=== PATIENT | female | born 1935 | race Caucasian/White ===

== ENCOUNTER 2018-12-17 17:56 | Inpatient (IN) | payer MEDICARE, OTHER ==
[~2018-12-17] VITALS: Ht 170.2 cm; Wt 62.2 kg
[2018-12-17] MEDS ORDERED: ONDANSETRON 4 MG INJ IV STA (22:23)
[2018-12-17] MEDS ORDERED: SOD CHLORIDE 0.9% 500 ML IV STA (22:23)
[2018-12-17] MEDS ORDERED: morphine 4 MG/ML VIAL IV STA (22:23)
[2018-12-18] VITALS (13 sets, daily range): BP systolic 122–154; BP diastolic 57–83; PULSE 70–92; RESP 16; Ht 170.2 cm; Wt 62.2 kg
[2018-12-18] MEDS ORDERED: PIPER-TAZO 3.375 GM IV (PMX) 100 ML IVPB SCH (00:30)
[2018-12-18] MEDS ORDERED: VANCOMYCIN IV PER PHARMACY XX SCH (00:30)
[2018-12-18] MEDS ORDERED: ALBUTEROL/IPRATROPIUM (NEB) 3 ML AMP HHN PRN (00:30)
[2018-12-18] MEDS ORDERED: PIPER-TAZO 3.375 GM IV (PMX) 100 ML IVPB ONE (00:30)
[2018-12-18] MEDS ORDERED: NACL 0.9% 3 ML SYG IV SCH (00:30)
[2018-12-18] MEDS ORDERED: ONDANSETRON 4 MG INJ IV PRN (00:30)
[2018-12-18] MEDS ORDERED: VANCOMYCIN 1 GM (PMX) 250 ML IVPB ONE (00:30)
[2018-12-18] MEDS ORDERED: morphine 2 MG INJ IV PRN (00:30)
--- NOTE | 2018-12-18 02:20 | ERD ---
ER Documentation Chief Complaint Chief Complaint RLQ abd pain and diarrhea off and on x2 weeks worse today. HPI Is an 83-year-old female with a bilateral lower quadrant abdominal pain diarrhea off and on for the past 2 weeks. She said she had 5-7 episodes diarrhea per day. Pain is mild to moderate intensity no exacerbating alleviating factors. Denies any fevers or chills. Denies any other current issues. ROS All systems reviewed and are negative except as per history of present illness. Allergies Allergies: Coded Allergies: No Known Allergy (Unverified , 12/17/18) PMhx/Soc History of Surgery: Yes (bilat salphingoophrectomy) Hx Respiratory Disorders: Yes (pna) Hx Alcohol Use: Yes (doesn't currently drink) Hx Substance Use: No Hx Tobacco Use: Yes Smoking Status: Former smoker Physical Exam Vitals Vital Signs Date Temp Pulse Resp B/P (MAP) Pulse Ox O2 O2 Flow FiO2 Time Delivery Rate 12/18/18 87 21 126/59 99 Room Air 02:14 (81) 12/17/18 99.6 94 18 155/65 99 18:41 (95) Physical Exam Const: No acute distress Head: Atraumatic Eyes: Normal Conjunctiva ENT: Normal External Ears, Nose and Mouth. Neck: Full range of motion. No meningismus. Resp: Clear to auscultation bilaterally Cardio: Regular rate and rhythm, no murmurs Abd: Soft, non tender, non distended. Normal bowel sounds Skin: No petechiae or rashes Back: No midline or flank tenderness Ext: No cyanosis, or edema Neur: Awake and alert Psych: Normal Mood and Affect Result Diagram: 12/17/18 2315 12/17/18 2315 Results 24 hrs Laboratory Tests Test 12/17/18 23:15 12/17/18 23:22 White Blood Count 18.9 10^3/ul Red Blood Count 3.54 10^6/ul Hemoglobin 10.8 g/dl Hematocrit 33.6 % Mean Corpuscular Volume 94.9 fl Mean Corpuscular Hemoglobin 30.5 pg Mean Corpuscular Hemoglobin Concent 32.1 g/dl Red Cell Distribution Width 12.7 % Platelet Count 375 10^3/UL Mean Platelet Volume 8.6 fl Immature Granulocytes % 1.800 % Neutrophils % 81.2 % Lymphocytes % 10.5 % Monocytes % 5.8 % Eosinophils % 0.3 % Basophils % 0.4 % Nucleated Red Blood Cells % 0.0 /100WBC Immature Granulocytes # 0.350 10^3/ul Neutrophils # 15.4 10^3/ul Lymphocytes # 2.0 10^3/ul Monocytes # 1.1 10^3/ul Eosinophils # 0.1 10^3/ul Basophils # 0.1 10^3/ul Nucleated Red Blood Cells # 0.0 10^3/ul Urine Color YELLOW Urine Clarity SLIGHTLY CLOUDY Urine pH 5.0 Urine Specific [place] 1.008 Urine Ketones NEGATIVE mg/dL Urine Nitrite NEGATIVE mg/dL Urine Bilirubin NEGATIVE mg/dL Urine Urobilinogen NEGATIVE mg/dL Urine Leukocyte Esterase 3+ Leif/ul Urine Microscopic RBC 17 /HPF Urine Microscopic WBC 25 /HPF Urine Squamous Epithelial Cells FEW /HPF Urine Transitional Epithelial Cells FEW /HPF Urine Bacteria FEW /HPF Urine Mucus FEW /HPF Urine Hemoglobin 2+ mg/dL Urine Glucose NEGATIVE mg/dL Urine Total Protein NEGATIVE mg/dl Sodium Level 137 mmol/L Potassium Level 3.7 mmol/L Chloride Level 99 mmol/L Carbon Dioxide Level 23 mmol/L Anion Gap 15 Blood Urea Nitrogen 14 mg/dl Creatinine 0.89 mg/dl Est Glomerular Filtrat Rate mL/min mL/min Glucose Level 111 mg/dl Calcium Level 8.9 mg/dl Total Bilirubin 0.4 mg/dl Direct Bilirubin 0.00 mg/dl Indirect Bilirubin 0.4 mg/dl Aspartate Amino Transf (AST/SGOT) 21 IU/L Alanine Aminotransferase (ALT/SGPT) 18 IU/L Alkaline Phosphatase 94 IU/L Total Protein 7.4 g/dl Albumin 3.9 g/dl Globulin 3.50 g/dl Albumin/Globulin Ratio 1.11 Lipase 117 U/L POC Venous Lactate 1.5 mmol/L Current Medications Medications Dose Sig/Randa Start Time Status Last (Trade) Ordered Route PRN Stop Time Admin Dose Reason Admin Sodium 500 ml @ Q1H STAT 12/17/18 DC 12/17/18 Chloride 500 mls/hr IV 22:23 22:23 12/17/18 23:22 Morphine 4 mg ONCE STAT 12/17/18 DC 12/17/18 Sulfate IV 22:23 22:23 (morphine) 12/17/18 22:27 Ondansetron 4 mg ONCE STAT 12/17/18 DC 12/17/18 HCl (Zofran IV 22:23 22:23 Inj) 12/17/18 22:27 Piperacillin 100 ml @ ONCE ONCE 12/18/18 DC 12/18/18 Sod/ 200 mls/hr IVPB 00:30 00:51 Tazobactam 12/18/18 00:59 Sod Vancomycin 250 ml @ ONCE ONCE 12/18/18 12/18/18 HCl 125 mls/hr IVPB 00:30 02:12 12/18/18 02:29 1,000 ml @ Q10H IV 12/18/18 Dextrose/Sodi 100 mls/hr 00:30 um Chloride IV Flush 3 ml PER 12/18/18 (NS 3 ml) PROTOCOL IV 00:30 Ondansetron 4 mg Q6H PRN 12/18/18 HCl (Zofran IV 00:30 Inj) NAUSEA/VOMITI NG Morphine 2 mg Q4H PRN 12/18/18 Sulfate IV .SEVERE 00:30 (morphine) PAIN 7-10 Famotidine 20 mg Q12 IV 12/18/18 (Pepcid Iv) 09:00 Albuterol/ 3 ml Q2H RESP 12/18/18 Ipratropium THERAPY PRN 00:30 (Duoneb) HHN SHORTNESS OF BREATH Vancomycin VANCOMYCIN PER 12/18/18 HCl (Vanco PER PHARMACY PROTOCOL XX 00:30 Iv Per Pharmacy) Piperacillin 100 ml @ Q6H IVPB 12/18/18 DC Sod/ 200 mls/hr 00:30 Tazobactam 12/18/18 00:46 Sod Piperacillin 100 ml @ Q6 IVPB 12/18/18 Sod/ 200 mls/hr 06:00 Tazobactam Sod Procedures/MDM Emergency department course: Patient seen and brought by triage nurse. Placed in bed from the evaluation. Had intravenous access established. Given fluid bolus and pain medications. Had a stat CT scan. Start on antibiotics. Surgery Dr. Dooley consulted during her hospital stay. Recommended admission. Hospitalist made aware. Medical decision makin-year-old female with colitis with possible underlying neoplasm and possible microperforations. All results were relayed to Dr. Dooley. Patient will be seen by Dr. Dooley in the a.m. Hospitalist also made aware. All results discussed with patient and caregiver at the bedside. Departure Diagnosis: Primary Impression: Abdominal pain Abdominal location: unspecified location Qualified Codes: R10.9 - U nspecified abdominal pain Additional Impression: Colitis Condition: Serious DIAMOND VALLADARES Dec 18, 2018 02:20
[2018-12-18] MEDS: DEXTROSE 5%-0.45% NACL 1,000 ML IV SCH ×3 (05:17→20:55)
[2018-12-18] MEDS: PIPER-TAZO 3.375 GM IV (PMX) 100 ML IVPB SCH ×3 (05:21→17:22)
--- NOTE | 2018-12-18 05:46 | HP ---
DIAMOND IRIZARRY MD 12/18/18 0545: Date/Time of Note Date/Time of Note DATE: 12/18/18 TIME: 05:40 Assessment/Plan VTE Prophylaxis SCD applied (from Nsg): Yes Pharmacological prophylaxis: NA/contraindicated Pharm contraindication: other (Patient may have surgical procedure) Lines/Catheters IV Catheter Type (from Nrsg): Peripheral IV Assessment/Plan Assessment/Plan 1. Abdominal pain -CT showing abnormal irregular thickening of the cecum and ascending colon is concerning for underlying colonic neoplasm with superimposed colitis and contained micro perforation. -IV antibiotic -Stool studies including C. difficile -GI and surgical consult 2. Sepsis, as evidenced by leukocytosis and tachycardia: Likely secondary to colitis -See #1 3. 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" Result Diagram: 12/18/18 0343 12/18/18 0343 Results 24hrs Laboratory Tests Test 12/17/18 23:15 12/17/18 23:22 12/18/18 03:43 White Blood Count 18.9 H 15.6 H Red Blood Count 3.54 L 3.45 L Hemoglobin 10.8 L 10.7 L Hematocrit 33.6 L 32.9 L Mean Corpuscular Volume 94.9 95.4 Mean Corpuscular Hemoglobin 30.5 31.0 Mean Corpuscular 32.1 32.5 Hemoglobin Concent Red Cell Distribution Width 12.7 12.7 Platelet Count 375 373 Mean Platelet Volume 8.6 8.6 Immature Granulocytes % 1.800 H 2.200 H Neutrophils % 81.2 H 81.0 H Lymphocytes % 10.5 L 10.9 L Monocytes % 5.8 5.2 Eosinophils % 0.3 0.3 Basophils % 0.4 0.4 Nucleated Red Blood Cells % 0.0 0.0 Immature Granulocytes # 0.350 H 0.340 H Neutrophils # 15.4 H 12.6 H Lymphocytes # 2.0 1.7 Monocytes # 1.1 H 0.8 Eosinophils # 0.1 0.0 Basophils # 0.1 0.1 Nucleated Red Blood Cells # 0.0 0.0 Urine Color YELLOW Urine Clarity SLIGHTLY CLOUDY A Urine pH 5.0 Urine Specific [place] 1.008 Urine Ketones NEGATIVE Urine Nitrite NEGATIVE Urine Bilirubin NEGATIVE Urine Urobilinogen NEGATIVE Urine Leukocyte Esterase 3+ H Urine Microscopic RBC 17 H Urine Microscopic WBC 25 H Urine Squamous FEW Epithelial Cells Urine Transitional FEW A Epithelial Cells Urine Bacteria FEW A Urine Mucus FEW A Urine Hemoglobin 2+ H Urine Glucose NEGATIVE Urine Total Protein NEGATIVE Sodium Level 137 139 Potassium Level 3.7 4.0 Chloride Level 99 107 Carbon Dioxide Level 23 24 Anion Gap 15 H 8 Blood Urea Nitrogen 14 14 Creatinine 0.89 0.83 Est Glomerular Filtrat Rate mL/min Glucose Level 111 106 Calcium Level 8.9 8.4 Total Bilirubin 0.4 0.4 Direct Bilirubin 0.00 0.00 Indirect Bilirubin 0.4 0.4 Aspartate Amino 21 20 Transf (AST/SGOT) Alanine 18 20 Aminotransferase (ALT/SGPT) Alkaline Phosphatase 94 78 Total Protein 7.4 6.4 # Albumin 3.9 3.4 Globulin 3.50 H 3.00 Albumin/Globulin Ratio 1.11 1.13 Lipase 117 POC Venous Lactate 1.5 Lactic Acid Level 0.9 Phosphorus Level 3.2 Magnesium Level 2.1 HPI/ROS Admit Date/Time Admit Date/Time Dec 18, 2018 at 00:11 Hx of Present Illness This is an 83-year-old female with a history of TAHBSO, 50 years ago for "tumor" who presented to ER complaining of abdominal pain times 2 weeks. Pain is mainly localized in the right quadrant. When pain progressively worsens, she decided to come to the ER for evaluation. She reported having had an episode of watery diarrhea yesterday morning. She denied constipation or vomiting. Denied BRBPR or weight loss. When presented to ER, WBC of almost 19,000. CT abdomen pelvis shows the followin. Abnormal irregular thickening of the cecum and ascending colon is concerning for underlying colonic neoplasm with superimposed colitis and contained micro pe rforation, small punctate foci of extraluminal gas adjacent to the cecum without evidence for organized collection to suggest an abscess. Appendicitis and right colonic diverticulitis are differential diagnostic possibilities believed to be less likely. Follow-up evaluation is recommended. Findings are discussed by telephone with Dr. Bell at 23:43. 2. Moderate-sized sliding hiatal hernia. 3. Diverticular disease of the distal colon without diverticulitis in these locations. 4. Prior hysterectomy. 5. Bilateral renal cortex thinning and borderline renal atrophy. 6. Use atherosclerotic calcification of the aorta and iliac systems. 7. Generalized demineralization with lower lumbar degenerative disc disease. . PMH/Family/Social Past Medical History Medical History: other (See HPI) Medications Current Medications Dextrose/Sodium Chloride 1,000 ml @ 100 mls/hr Q10H IV Last administered on 12/18/18at 05:17; Admin Dose 100 MLS/HR; Start 12/18/18 at 00:30 IV Flush (NS 3 ml) 3 ml PER PROTOCOL IV ; Start 12/18/18 at 00:30 Ondansetron HCl (Zofran Inj) 4 mg Q6H PRN IV NAUSEA/VOMITING; Start 12/18/18 at 00:30 Morphine Sulfate (morphine) 2 mg Q4H PRN IV .SEVERE PAIN 7-10; Start 12/18/18 at 00:30 Famotidine (Pepcid Iv) 20 mg Q12 IV ; Start 12/18/18 at 09:00 Albuterol/ Ipratropium (Duoneb) 3 ml Q2H RESP THERAPY PRN HHN SHORTNESS OF BREATH; Start 12/18/18 at 00:30 Vancomycin HCl (Vanco Iv Per Pharmacy) VANCOMYCIN PER PHARMACY PER PROTOCOL XX ; Start 12/18/18 at 00:30 Piperacillin Sod/ Tazobactam Sod 100 ml @ 200 mls/hr Q6 IVPB Last administered on 12/18/18at 05:21; Admin Dose 200 MLS/HR; Start 12/18/18 at 06:00 Vancomycin HCl 250 ml @ 125 mls/hr Q24H IVPB ; Start 12/19/18 at 02:00 Coded Allergies: No Known Allergy (Unverified , 12/17/18) Past Surgical History Past Surgical Hx: other (TAHBSO) Family History Significant Family History: no pertinent family hx Social History Alcohol Use: none Smoking Status: Former smoker Drug Use: none Exam/Review of Systems Vital Signs Vitals Vital Signs Date Temp Pulse Resp B/P (MAP) Pulse Ox O2 O2 Flow FiO2 Time Delivery Rate 12/18/18 90 04:00 12/18/18 99.4 16 154/77 95 02:48 (102) 12/18/18 Room Air 02:14 Intake and Output 12/17/18 12/17/18 12/18/18 1515:00 23:00 07:00 IntakeIntake Total 600 ml BalanceBalance 600 ml Exam Constitutional: alert, oriented Head: normocephalic, atraumatic Eyes: EOMI, PERRL ENMT: other (Hard of hearing) Respiratory: clear to auscultation, normal air movement Cardiovascular: regular rate and rhythm, nl pulses Gastrointestinal: other (Right-sided abdominal pain) Extremities: normal pulses SAURABH SAMANO 12/18/18 1341: Assessment/Plan Assessment/Plan Hospital Course Subjective :still with significant abd pain, no more diarrhea, just had the one episode Objective : General: A&O x3, answering questions appropriately, elderly HEENT: NC/ AT. PERRL. EOM intact Neck: supple CVS: S1, S2, RRR. no murmurs. no pain on chest wall palpation Lungs: CTA b/l. no wheezing or rhonchi Abd: soft, tender ++ RLQ with jennifer distention on that side, + guarding Ext: moving all extremities skin: no rashes assessment and plan: 83-year-old female who resides in [facility] presented with severe right lower quadrant abdominal pain now managed for the followin. Acute colitis and contained microperforation with concern for underlying colonic neoplasm -CEA levels 2 sepsis secondary to #1 #3 3. Possible UTI 4. History of hysterectomy for 2 more Plan: Continue empiric antibiotics for now Await surgical and GI review and recommendations Continue n.p.o. and pain control and supportive care. Result Diagram: 12/18/18 0343 12/18/18 0343 PMH/Family/Social Past Medical History Coded Allergies: No Known Allergy (Unverified , 12/17/18) DIAMOND IRIZARRY MD Dec 18, 2018 05:45 SAURABH SAMANO Dec 18, 2018 13:41
[2018-12-18] MEDS: FAMOTIDINE 20 MG INJ IV SCH ×2 (08:34→20:55)
--- NOTE | 2018-12-18 19:20 | CONS ---
Assessment/Plan Assessment/Plan Hospital Course (Demo Recall) Summary Assessment and Plan: Assessment: Abnormal irregular thickening of the cecum and ascending colon -Concerning for underlying neoplasm -Superimposed colitis and contained microperforation Abdominal pain secondary to above Leukocytosistrending down UTI Plan: No plan for endoscopic evaluation given results of CT scan patient is considered very high risk for perforation Recommend conservative management continue n.p.o. status as well as IV fluids and antibiotics Follow-up on surgical recommendations Maintain close observation if patient improves consider colonoscopy in 2-4 weeks however if patient's condition worsens will defer to our surgical colleagues Patient seen in collaboration with Dr. Frederick CC: JOHN FREDERICK MD ; Consultation Date/Type/Reason Admit Date/Time Dec 18, 2018 at 00:11 Date of Consultation: Dec 18, 2018 Type of Consult GI Date/Time of Note DATE: 12/18/18 TIME: 19:04 Hx of Present Illness This is a 83-year-old female with past medical history of total abdominal hysterectomy and bilateral salpingo-oophorectomy about 50 years ago for a tumor who presented to the ED from her facility for complaints of progressive abdominal pain times 2 weeks to complain of diarrhea however denies constipation, nausea/vomiting, melena or hematochezia. Patient also denies unintentional weight loss. With workup she underwent a CT abdomen/pelvis without contrast which revealed abnormal irregular thickening of the cecum and a scending colon, concerning for underlying colonic neoplasm with superimposed colitis and contained microperforation. Small [place] foci of extraluminal gas adjacent to the cecum without evidence of organized collection to suggest abscess. Appendicitis and right colonic diverticulitis are differential diagnostic possibilities to believe less likely. Labs are noted with leukocytosis currently trending down patient is on Zosyn she does have normocytic anemia LFTs are within normal limits urine consistent with UTI given results of CAT scan plan to treat patient conservatively follow-up with surgical recommendations, and n.p.o. status for now continue IV fluids therapy and pain management as needed we will maintain close observation assess healing consider colonoscopy in 2-4 weeks however symptoms become progressively worse will defer to surgery for possible surgical intervention Review of Systems: A 12 system, review was conducted and is negative except as noted in the HPI or here. Past Medical History Medical History: other Home Meds Unable to Obtain Active Prescriptions or Reported Meds Medications Current Medications Dextrose/Sodium Chloride 1,000 ml @ 80 mls/hr [id number] IV Last administered on 12/18/18at 05:17; Admin Dose 100 MLS/HR; Start 12/18/18 at 00:30 IV Flush (NS 3 ml) 3 ml PER PROTOCOL IV ; Start 12/18/18 at 00:30 Ondansetron HCl (Zofran Inj) 4 mg Q6H PRN IV NAUSEA/VOMITING; Start 12/18/18 at 00:30 Morphine Sulfate (morphine) 2 mg Q4H PRN IV .SEVERE PAIN 7-10; Start 12/18/18 at 00:30 Famotidine (Pepcid Iv) 20 mg Q12 IV Last administered on 12/18/18at 08:34; Admin Dose 20 MG; Start 12/18/18 at 09:00 Albuterol/ Ipratropium (Duoneb) 3 ml Q2H RESP THERAPY PRN HHN SHORTNESS OF BREATH; Start 12/18/18 at 00:30 Piperacillin Sod/ Tazobactam Sod 100 ml @ 200 mls/hr Q6 IVPB Last administered on 12/18/18at 17:22; Admin Dose 200 MLS/HR; Start 12/18/18 at 06:00 Enoxaparin Sodium (Lovenox) 30 mg DAILY SC ; Start 12/19/18 at 09:00 Allergies: Coded Allergies: No Known Allergy (Unverified , 12/17/18) Past Surgical History Past Surgical Hx: other Social History Alcohol Use: none Smoking Status: Former smoker Drug Use: none Exam/Review of Systems Exam Vitals Vital Signs Date Temp Pulse Resp B/P (MAP) Pulse Ox O2 O2 Flow FiO2 Time Delivery Rate 12/18/18 83 16:01 12/18/18 98.7 16 136/65 96 15:35 (88) 12/18/18 Room Air 02:14 Intake and Output 12/17/18 12/17/18 12/18/18 1515:00 23:00 07:00 IntakeIntake Total 700 ml BalanceBalance 700 ml Constitutional: alert, oriented Psych: no complaints Head: normocephalic Eyes: nl conjunctiva ENMT: nl external ears & nose Neck: supple Respiratory: clear to auscultation Cardiovascular: regular rate and rhythm Gastrointestinal: soft, bowel sounds, tender (lower abd tenderness) Results Result Diagram: 12/18/18 0343 12/18/18 0343 Results 24hrs Laboratory Tests Test 12/17/18 23:15 12/17/18 23:22 12/18/18 03:43 White Blood Count 18.9 H 15.6 H Red Blood Count 3.54 L 3.45 L Hemoglobin 10.8 L 10.7 L Hematocrit 33.6 L 32.9 L Mean Corpuscular Volume 94.9 95.4 Mean Corpuscular Hemoglobin 30.5 31.0 Mean Corpuscular 32.1 32.5 Hemoglobin Concent Red Cell Distribution Width 12.7 12.7 Platelet Count 375 373 Mean Platelet Volume 8.6 8.6 Immature Granulocytes % 1.800 H 2.200 H Neutrophils % 81.2 H 81.0 H Lymphocytes % 10.5 L 10.9 L Monocytes % 5.8 5.2 Eosinophils % 0.3 0.3 Basophils % 0.4 0.4 Nucleated Red Blood Cells % 0.0 0.0 Immature Granulocytes # 0.350 H 0.340 H Neutrophils # 15.4 H 12.6 H Lymphocytes # 2.0 1.7 Monocytes # 1.1 H 0.8 Eosinophils # 0.1 0.0 Basophils # 0.1 0.1 Nucleated Red Blood Cells # 0.0 0.0 Urine Color YELLOW Urine Clarity SLIGHTLY CLOUDY A Urine pH 5.0 Urine Specific [place] 1.008 Urine Ketones NEGATIVE Urine Nitrite NEGATIVE Urine Bilirubin NEGATIVE Urine Urobilinogen NEGATIVE Urine Leukocyte Esterase 3+ H Urine Microscopic RBC 17 H Urine Microscopic WBC 25 H Urine Squamous FEW Epithelial Cells Urine Transitional FEW A Epithelial Cells Urine Bacteria FEW A Urine Mucus FEW A Urine Hemoglobin 2+ H Urine Glucose NEGATIVE Urine Total Protein NEGATIVE Sodium Level 137 139 Potassium Level 3.7 4.0 Chloride Level 99 107 Carbon Dioxide Level 23 24 Anion Gap 15 H 8 Blood Urea Nitrogen 14 14 Creatinine 0.89 0.83 Est Glomerular Filtrat Rate mL/min Glucose Level 111 106 Calcium Level 8.9 8.4 Total Bilirubin 0.4 0.4 Direct Bilirubin 0.00 0.00 Indirect Bilirubin 0.4 0.4 Aspartate Amino 21 20 Transf (AST/SGOT) Alanine 18 20 Aminotransferase (ALT/SGPT) Alkaline Phosphatase 94 78 Total Protein 7.4 6.4 # Albumin 3.9 3.4 Globulin 3.50 H 3.00 Albumin/Globulin Ratio 1.11 1.13 Lipase 117 POC Venous Lactate 1.5 Lactic Acid Level 0.9 Phosphorus Level 3.2 Magnesium Level 2.1 Medications Medication Current Medications Dextrose/Sodium Chloride 1,000 ml @ 80 mls/hr [id number] IV Last administered on 12/18/18at 05:17; Admin Dose 100 MLS/HR; Start 12/18/18 at 00:30 IV Flush (NS 3 ml) 3 ml PER PROTOCOL IV ; Start 12/18/18 at 00:30 Ondansetron HCl (Zofran Inj) 4 mg Q6H PRN IV NAUSEA/VOMITING; Start 12/18/18 at 00:30 Morphine Sulfate (morphine) 2 mg Q4H PRN IV .SEVERE PAIN 7-10; Start 12/18/18 at 00:30 Famotidine (Pepcid Iv) 20 mg Q12 IV Last administered on 12/18/18at 08:34; Admin Dose 20 MG; Start 12/18/18 at 09:00 Albuterol/ Ipratropium (Duoneb) 3 ml Q2H RESP THERAPY PRN HHN SHORTNESS OF BREATH; Start 12/18/18 at 00:30 Piperacillin Sod/ Tazobactam Sod 100 ml @ 200 mls/hr Q6 IVPB Last administered on 12/18/18at 17:22; Admin Dose 200 MLS/HR; Start 12/18/18 at 06:00 Enoxaparin Sodium (Lovenox) 30 mg DAILY SC ; Start 12/19/18 at 09:00 WILBUR WAHL Dec 18, 2018 19:14
[2018-12-19] VITALS (10 sets, daily range): BP systolic 105–153; BP diastolic 51–77; PULSE 64–80; RESP 16–18
[2018-12-19] MEDS: PIPER-TAZO 3.375 GM IV (PMX) 100 ML IVPB SCH ×4 (00:35→18:07)
[2018-12-19] MEDS ORDERED: VANCOMYCIN 1 GM 250 ML IVPB SCH (02:00)
[2018-12-19] MEDS: FAMOTIDINE 20 MG INJ IV SCH ×2 (08:10→20:55)
[2018-12-19] MEDS: ENOXAPARIN 30 MG/0.3 ML SYG SC SCH (08:17)
[2018-12-19] MEDS: DEXTROSE 5%-0.45% NACL 1,000 ML IV SCH (10:58)
--- NOTE | 2018-12-19 11:19 | PN ---
Date/Time of Note Date/Time of Note DATE: 12/19/18 TIME: 11:16 Assessment/Plan VTE Prophylaxis Risk score (from Nsg)>0 risk: 5 SCD applied (from Nsg): Yes Pharmacological prophylaxis: LMWH Lines/Catheters IV Catheter Type (from Nrsg): Peripheral IV Assessment/Plan Hospital Course Subjective : abd pain is better ? Objective : General: A&O x3, answering questions appropriately, elderly HEENT: NC/ AT. PERRL. EOM intact Neck: supple CVS: S1, S2, RRR. no murmurs. no pain on chest wall palpation Lungs: CTA b/l. 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 Acute colitis and contained microperforation with concern for underlying colonic neoplasm -CEA levels 2 sepsis secondary to #1 #3 3. Possible UTI 4. History of hysterectomy for "tumor" Plan: -Appreciate GI input -Spoke in detail with surgery, plan is to continue antibiotics, n.p.o. for now and plan to repeat the CAT scan in another 24-48 hours. Surgery is not entirely convinced about underlying neoplasm, repeat imaging after the inflammation has improved will give more information. -In the interim, continue all supportive care, IV hydration, n.p.o. except ice chips. Result Diagram: 12/19/18 0607 12/19/18 0555 Results 24hrs Laboratory Tests Test 12/19/18 05:55 12/19/18 06:07 Sodium Level 138 Potassium Level 3.6 Chloride Level 108 Carbon Dioxide Level 22 Anion Gap 8 Blood Urea Nitrogen 10 Creatinine 0.86 Est Glomerular Filtrat Rate mL/min Glucose Level 105 Calcium Level 8.2 L Phosphorus Level 2.7 Magnesium Level 2.1 Carcinoembryonic Antigen 1.4 White Blood Count 15.5 H Red Blood Count 3.33 L Hemoglobin 10.1 L Hematocrit 31.3 L Mean Corpuscular Volume 94.0 Mean Corpuscular Hemoglobin 30.3 Mean Corpuscular Hemoglobin Concent 32.3 Red Cell Distribution Width 12.7 Platelet Count 376 Mean Platelet Volume 8.9 Immature Granulocytes % 1.200 H Neutrophils % 82.5 H Lymphocytes % 9.7 L Monocytes % 5.7 Eosinophils % 0.5 Basophils % 0.4 Nucleated Red Blood Cells % 0.0 Immature Granulocytes # 0.180 H Neutrophils # 12.8 H Lymphocytes # 1.5 Monocytes # 0.9 Eosinophils # 0.1 Basophils # 0.1 Nucleated Red Blood Cells # 0.0 Exam/Review of Systems Exam Vitals Vital Signs Date Temp Pulse Resp B/P (MAP) Pulse Ox O2 O2 Flow FiO2 Time Delivery Rate 12/19/18 68 08:14 12/19/18 98.5 16 132/63 100 07:28 (86) 12/18/18 Room Air 02:14 Intake and Output 12/18/18 12/18/18 12/19/18 1515:00 23:00 07:00 IntakeIntake Total 100 ml 900 ml 200 ml OutputOutput Total 800 ml BalanceBalance 100 ml 100 ml 200 ml Results Results 24hrs Laboratory Tests Test 12/19/18 05:55 12/19/18 06:07 Sodium Level 138 Potassium Level 3.6 Chloride Level 108 Carbon Dioxide Level 22 Anion Gap 8 Blood Urea Nitrogen 10 Creatinine 0.86 Est Glomerular Filtrat Rate mL/min Glucose Level 105 Calcium Level 8.2 L Phosphorus Level 2.7 Magnesium Level 2.1 Carcinoembryonic Antigen 1.4 White Blood Count 15.5 H Red Blood Count 3.33 L Hemoglobin 10.1 L Hematocrit 31.3 L Mean Corpuscular Volume 94.0 Mean Corpuscular Hemoglobin 30.3 Mean Corpuscular Hemoglobin Concent 32.3 Red Cell Distribution Width 12.7 Platelet Count 376 Mean Platelet Volume 8.9 Immature Granulocytes % 1.200 H Neutrophils % 82.5 H Lymphocytes % 9.7 L Monocytes % 5.7 Eosinophils % 0.5 Basophils % 0.4 Nucleated Red Blood Cells % 0.0 Immature Granulocytes # 0.180 H Neutrophils # 12.8 H Lymphocytes # 1.5 Monocytes # 0.9 Eosinophils # 0.1 Basophils # 0.1 Nucleated Red Blood Cells # 0.0 Medications Medication Current Medications Dextrose/Sodium Chloride 1,000 ml @ 80 mls/hr [id number] IV Last administered on 12/19/18at 10:58; Admin Dose 80 MLS/HR; Start 12/18/18 at 00:30 IV Flush (NS 3 ml) 3 ml PER PROTOCOL IV ; Start 12/18/18 at 00:30 Ondansetron HCl (Zofran Inj) 4 mg Q6H PRN IV NAUSEA/VOMITING; Start 12/18/18 at 00:30 Morphine Sulfate (morphine) 2 mg Q4H PRN IV .SEVERE PAIN 7-10; Start 12/18/18 at 00:30 Famotidine (Pepcid Iv) 20 mg Q12 IV Last administered on 12/19/18at 08:10; Admin Dose 20 MG; Start 12/18/18 at 09:00 Albuterol/ Ipratropium (Duoneb) 3 ml Q2H RESP THERAPY PRN HHN SHORTNESS OF BREATH; Start 12/18/18 at 00:30 Piperacillin Sod/ Tazobactam Sod 100 ml @ 200 mls/hr Q6 IVPB Last administered on 12/19/18at 05:53; Admin Dose 200 MLS/HR; Start 12/18/18 at 06:00 Enoxaparin Sodium (Lovenox) 30 mg DAILY SC Last administered on 12/19/18at 08:17; Admin Dose 30 MG; Start 12/19/18 at 09:00 SAURABH SAMANO Dec 19, 2018 11:19
--- NOTE | 2018-12-19 12:08 | CONS ---
Assessment/Plan Assessment/Plan Assessment/Plan (Daily) 83-year-old female presents with right-sided abdominal pain possible colitis possible microperforation of diverticulitis versus microperforation with neoplasm. Possibility of appendicitis but feel that this is most likely secondary to adjacent inflammation. Recommendation is to monitor patient keep on IV antibiotics and possible repeat the CAT scan with oral contrast if this does seem suggestive of a neoplasm patient will will need to undergo exploration for possible right colectomy. Patient is not at the state currently to undergo endoscopy because of the question microperforation Consultation Date/Type/Reason Admit Date/Time Dec 18, 2018 at 00:11 Date of Consultation: Dec 19, 2018 Type of Consult General surgery Reason for Consultation Right-sided colitis versus neoplasm possible microperforation possible appendicitis Requesting Provider: SAURABH SAMANO Date/Time of Note DATE: 12/19/18 TIME: 12:05 Hx of Present Illness Patient 83-year-old female who presented with worsening abdominal pain over the past couple of weeks. Patient past medical history though the patient has not seen physician in many years. Patient has never had colonoscopy has never had a mammogram and does not have annual health care visits. On evaluation in the emergency room CAT scan was obtained which showed possible colitis diverticulitis with possible superimposed appendicitis and question of microperforation with possible neoplasm in the cecum. Patient felt too high risk for endoscopy. Patient states that she is feeling better now and is having multiple bowel movements. Past Medical History Medical History: other Home Meds Unable to Obtain Active Prescriptions or Reported Meds Medications Current Medications Dextrose/Sodium Chloride 1,000 ml @ 80 mls/hr [id number] IV Last administered on 12/19/18at 10:58; Admin Dose 80 MLS/HR; Start 12/18/18 at 00:30 IV Flush (NS 3 ml) 3 ml PER PROTOCOL IV ; Start 12/18/18 at 00:30 Ondansetron HCl (Zofran Inj) 4 mg Q6H PRN IV NAUSEA/VOMITING; Start 12/18/18 at 00:30 Morphine Sulfate (morphine) 2 mg Q4H PRN IV .SEVERE PAIN 7-10; Start 12/18/18 at 00:30 Famotidine (Pepcid Iv) 20 mg Q12 IV Last administered on 12/19/18at 08:10; Admin Dose 20 MG; Start 12/18/18 at 09:00 Albuterol/ Ipratropium (Duoneb) 3 ml Q2H RESP THERAPY PRN HHN SHORTNESS OF BREATH; Start 12/18/18 at 00:30 Piperacillin Sod/ Tazobactam Sod 100 ml @ 200 mls/hr Q6 IVPB Last administered on 12/19/18at 11:47; Admin Dose 200 MLS/HR; Start 12/18/18 at 06:00 Enoxaparin Sodium (Lovenox) 30 mg DAILY SC Last administered on 12/19/18at 08:17; Admin Dose 30 MG; Start 12/19/18 at 09:00 Allergies: Coded Allergies: No Known Allergy (Unverified , 12/17/18) Past Surgical History Past Surgical Hx: other Social History Alcohol Use: none Smoking Status: Former smoker Drug Use: none Exam/Review of Systems Exam Vitals Vital Signs Date Temp Pulse Resp B/P (MAP) Pulse Ox O2 O2 Flow FiO2 Time Delivery Rate 12/19/18 98.1 68 16 130/64 95 11:36 (86) 12/18/18 Room Air 02:14 Intake and Output 12/18/18 12/18/18 12/19/18 1414:59 22:59 06:59 IntakeIntake Total 100 ml 900 ml 200 ml OutputOutput Total 800 ml BalanceBalance 100 ml 100 ml 200 ml Exam Alert and oriented x3. Patient expresses that she thinks she is to hold undergo general anesthesia. HEENT pupils equal react light sclerae anicteric. Lungs clear to auscultation. Heart regular rate and rhythm with normal S1-S2. Abdomen soft nondistended mild tenderness right side abdomen to palpation no justina ound Results Result Diagram: 12/19/18 0607 12/19/18 0555 Results 24hrs Laboratory Tests Test 12/19/18 05:55 12/19/18 06:07 Sodium Level 138 Potassium Level 3.6 Chloride Level 108 Carbon Dioxide Level 22 Anion Gap 8 Blood Urea Nitrogen 10 Creatinine 0.86 Est Glomerular Filtrat Rate mL/min Glucose Level 105 Calcium Level 8.2 L Phosphorus Level 2.7 Magnesium Level 2.1 Carcinoembryonic Antigen 1.4 White Blood Count 15.5 H Red Blood Count 3.33 L Hemoglobin 10.1 L Hematocrit 31.3 L Mean Corpuscular Volume 94.0 Mean Corpuscular Hemoglobin 30.3 Mean Corpuscular Hemoglobin Concent 32.3 Red Cell Distribution Width 12.7 Platelet Count 376 Mean Platelet Volume 8.9 Immature Granulocytes % 1.200 H Neutrophils % 82.5 H Lymphocytes % 9.7 L Monocytes % 5.7 Eosinophils % 0.5 Basophils % 0.4 Nucleated Red Blood Cells % 0.0 Immature Granulocytes # 0.180 H Neutrophils # 12.8 H Lymphocytes # 1.5 Monocytes # 0.9 Eosinophils # 0.1 Basophils # 0.1 Nucleated Red Blood Cells # 0.0 Medications Medication Current Medications Dextrose/Sodium Chloride 1,000 ml @ 80 mls/hr [id number] IV Last administered on 12/19/18at 10:58; Admin Dose 80 MLS/HR; Start 12/18/18 at 00:30 IV Flush (NS 3 ml) 3 ml PER PROTOCOL IV ; Start 12/18/18 at 00:30 Ondansetron HCl (Zofran Inj) 4 mg Q6H PRN IV NAUSEA/VOMITING; Start 12/18/18 at 00:30 Morphine Sulfate (morphine) 2 mg Q4H PRN IV .SEVERE PAIN 7-10; Start 12/18/18 at 00:30 Famotidine (Pepcid Iv) 20 mg Q12 IV Last administered on 12/19/18at 08:10; Admin Dose 20 MG; Start 12/18/18 at 09:00 Albuterol/ Ipratropium (Duoneb) 3 ml Q2H RESP THERAPY PRN HHN SHORTNESS OF BREATH; Start 12/18/18 at 00:30 Piperacillin Sod/ Tazobactam Sod 100 ml @ 200 mls/hr Q6 IVPB Last administered on 12/19/18at 11:47; Admin Dose 200 MLS/HR; Start 12/18/18 at 06:00 Enoxaparin Sodium (Lovenox) 30 mg DAILY SC Last administered on 12/19/18at 08:17; Admin Dose 30 MG; Start 12/19/18 at 09:00 DIAMOND LAFLEUR MD Dec 19, 2018 12:08
--- NOTE | 2018-12-19 15:22 | PN ---
Date/Time of Note Date/Time of Note DATE: 12/19/18 TIME: 15:15 Assessment/Plan VTE Prophylaxis Risk score (from Ns)>0 risk: 5 SCD applied (from Ns): Yes Pharmacological prophylaxis: other (scds) Lines/Catheters IV Catheter Type (from [facility]): Peripheral IV Assessment/Plan Hospital Course Summary Assessment and Plan: Assessment: Abnormal irregular thickening of the cecum and ascending colon -Concerning for underlying neoplasm -Superimposed colitis and contained microperforation Abdominal pain secondary to above Leukocytosistrending down UTI Plan: Per surgery/Hospitalist notes- plan to repeat CT with oral contrast in 24-48 hours. Again no current plan for endoscopic evaluation. Continue n.p.o. status as well as IV fluids/antibiotics Maintain close observation if patient improves consider colonoscopy in 2-4 weeks however if patient's condition worsens will defer to our surgical colleagues Patient seen in collaboration with Dr. Frederick Subjective: Course reviewed with nursing staff Patient interviewed and examined All labs, imaging and other results reviewed The patient currently resting in bed No over night events, no c/o pain or discomfort. However with palpation pt c/o pain to LLQ Maintain close observation PHYSICAL EXAMINATION: GENERAL: Alert & oriented x 3, in no acute distress SKIN: No lesions HEAD: Normocephalic, atraumatic, no tenderness. EYES: Pupils equal reactive to light, no discharge. EARS/NOSE AND THROAT: Ears normal, nose normal NECK: Supple, no masses CHEST: Inspection within normal limits. CARDIOVASCULAR: Heart: Regular rate and rhythm RESPIRATORY: Lungs clear to auscultation GASTROINTESTINAL AND LIVER: Abdomen: Soft, LLQ tenderness with palpation, non-distended, no hernias, no masses, no organomegaly, no ascites, no guarding, no rebound tenderness, normoactive bowel sounds. Rectal: Deferred. EXTREMITIES: No cyanosis, clubbing or edema. Result Diagram: 12/19/18 0607 12/19/18 0555 Results 24hrs Laboratory Tests Test 12/19/18 05:55 12/19/18 06:07 Sodium Level 138 Potassium Level 3.6 Chloride Level 108 Carbon Dioxide Level 22 Anion Gap 8 Blood Urea Nitrogen 10 Creatinine 0.86 Est Glomerular Filtrat Rate mL/min Glucose Level 105 Calcium Level 8.2 L Phosphorus Level 2.7 Magnesium Level 2.1 Carcinoembryonic Antigen 1.4 White Blood Count 15.5 H Red Blood Count 3.33 L Hemoglobin 10.1 L Hematocrit 31.3 L Mean Corpuscular Volume 94.0 Mean Corpuscular Hemoglobin 30.3 Mean Corpuscular Hemoglobin Concent 32.3 Red Cell Distribution Width 12.7 Platelet Count 376 Mean Platelet Volume 8.9 Immature Granulocytes % 1.200 H Neutrophils % 82.5 H Lymphocytes % 9.7 L Monocytes % 5.7 Eosinophils % 0.5 Basophils % 0.4 Nucleated Red Blood Cells % 0.0 Immature Granulocytes # 0.180 H Neutrophils # 12.8 H Lymphocytes # 1.5 Monocytes # 0.9 Eosinophils # 0.1 Basophils # 0.1 Nucleated Red Blood Cells # 0.0 Exam/Review of Systems Exam Vitals Vital Signs Date Temp Pulse Resp B/P (MAP) Pulse Ox O2 O2 Flow FiO2 Time Delivery Rate 12/19/18 69 12:03 12/19/18 98.1 16 130/64 95 11:36 (86) 12/18/18 Room Air 02:14 Intake and Output 12/18/18 12/18/18 12/19/18 1515:00 23:00 07:00 IntakeIntake Total 100 ml 900 ml 200 ml OutputOutput Total 800 ml BalanceBalance 100 ml 100 ml 200 ml Results Results 24hrs Laboratory Tests Test 12/19/18 05:55 12/19/18 06:07 Sodium Level 138 Potassium Level 3.6 Chloride Level 108 Carbon Dioxide Level 22 Anion Gap 8 Blood Urea Nitrogen 10 Creatinine 0.86 Est Glomerular Filtrat Rate mL/min Glucose Level 105 Calcium Level 8.2 L Phosphorus Level 2.7 Magnesium Level 2.1 Carcinoembryonic Antigen 1.4 White Blood Count 15.5 H Red Blood Count 3.33 L Hemoglobin 10.1 L Hematocrit 31.3 L Mean Corpuscular Volume 94.0 Mean Corpuscular Hemoglobin 30.3 Mean Corpuscular Hemoglobin Concent 32.3 Red Cell Distribution Width 12.7 Platelet Count 376 Mean Platelet Volume 8.9 Immature Granulocytes % 1.200 H Neutrophils % 82.5 H Lymphocytes % 9.7 L Monocytes % 5.7 Eosinophils % 0.5 Basophils % 0.4 Nucleated Red Blood Cells % 0.0 Immature Granulocytes # 0.180 H Neutrophils # 12.8 H Lymphocytes # 1.5 Monocytes # 0.9 Eosinophils # 0.1 Basophils # 0.1 Nucleated Red Blood Cells # 0.0 Medications Medication Current Medications Dextrose/Sodium Chloride 1,000 ml @ 80 mls/hr [id number] IV Last administered on 12/19/18at 10:58; Admin Dose 80 MLS/HR; Start 12/18/18 at 00:30 IV Flush (NS 3 ml) 3 ml PER PROTOCOL IV ; Start 12/18/18 at 00:30 Ondansetron HCl (Zofran Inj) 4 mg Q6H PRN IV NAUSEA/VOMITING; Start 12/18/18 at 00:30 Morphine Sulfate (morphine) 2 mg Q4H PRN IV .SEVERE PAIN 7-10; Start 12/18/18 at 00:30 Famotidine (Pepcid Iv) 20 mg Q12 IV Last administered on 12/19/18at 08:10; Admin Dose 20 MG; Start 12/18/18 at 09:00 Albuterol/ Ipratropium (Duoneb) 3 ml Q2H RESP THERAPY PRN HHN SHORTNESS OF BREATH; Start 12/18/18 at 00:30 Piperacillin Sod/ Tazobactam Sod 100 ml @ 200 mls/hr Q6 IVPB Last administered on 12/19/18at 11:47; Admin Dose 200 MLS/HR; Start 12/18/18 at 06:00 Enoxaparin Sodium (Lovenox) 30 mg DAILY SC Last administered on 12/19/18at 08:17; Admin Dose 30 MG; Start 12/19/18 at 09:00 WILBUR WAHL Dec 19, 2018 15:22
--- NOTE | 2018-12-19 18:19 | PN ---
Date/Time of Note Date/Time of Note DATE: 12/19/18 TIME: 18:15 Assessment/Plan VTE Prophylaxis Risk score (from [facility])>0 risk: 5 SCD applied (from [facility]): Yes Pharmacological prophylaxis: NA/contraindicated Pharm contraindication: surgical contra Lines/Catheters IV Catheter Type (from [facility]): Peripheral IV Assessment/Plan Assessment/Plan PROGRESS NOTE Date/Time of Note Date/Time of Note DATE: 12/19/18 TIME: 15:15 Assessment/Plan VTE Prophylaxis Risk score (from [facility] [place])>0 risk: 5 SCD applied (from [facility] [facility]): Yes Pharmacological prophylaxis: other (scds) Lines/Catheters IV Catheter Type (from [facility]): Peripheral IV Assessment/Plan Hospital Course Summary Assessment and Plan: Assessment: Abnormal irregular thickening of the cecum and ascending colon -Concerning for underlying neoplasm -Superimposed colitis and contained microperforation Abdominal pain secondary to above Leukocytosistrending down UTI Plan: Discussed with Dr. Dooley surgeon in the case, plan to repeat CT with oral contrast in 24-48 hours. No current plan for endoscopic evaluation. Continue n.p.o. status as well as IV fluids/antibiotics Maintain close observation if patient improves consider colonoscopy in 2-4 weeks however if patient's condition worsens will defer to our surgical colleagues Result Diagram: 12/19/18 0607 12/19/18 0555 Results 24hrs Laboratory Tests Test 12/19/18 05:55 12/19/18 06:07 Sodium Level 138 Potassium Level 3.6 Chloride Level 108 Carbon Dioxide Level 22 Anion Gap 8 Blood Urea Nitrogen 10 Creatinine 0.86 Est Glomerular Filtrat Rate mL/min Glucose Level 105 Calcium Level 8.2 L Phosphorus Level 2.7 Magnesium Level 2.1 Carcinoembryonic Antigen 1.4 White Blood Count 15.5 H Red Blood Count 3.33 L Hemoglobin 10.1 L Hematocrit 31.3 L Mean Corpuscular Volume 94.0 Mean Corpuscular Hemoglobin 30.3 Mean Corpuscular Hemoglobin Concent 32.3 Red Cell Distribution Width 12.7 Platelet Count 376 Mean Platelet Volume 8.9 Immature Granulocytes % 1.200 H Neutrophils % 82.5 H Lymphocytes % 9.7 L Monocytes % 5.7 Eosinophils % 0.5 Basophils % 0.4 Nucleated Red Blood Cells % 0.0 Immature Granulocytes # 0.180 H Neutrophils # 12.8 H Lymphocytes # 1.5 Monocytes # 0.9 Eosinophils # 0.1 Basophils # 0.1 Nucleated Red Blood Cells # 0.0 Subjective 24 Hr Interval Summary Free Text/Dictation Subjective: Course reviewed with nursing staff Patient interviewed and examined All labs, imaging and other results reviewed The patient appears comfortable No over night events, no c/o pain or discomfort. Reviewed with Dr. Dooley from surgery, will plan repeat CT in 24 hours Maintain close observation Exam/Review of Systems Exam Vitals Vital Signs Date Temp Pulse Resp B/P (MAP) Pulse Ox O2 O2 Flow FiO2 Time Delivery Rate 12/19/18 98.7 68 18 153/67 98 Room Air 16:38 (95) Intake and Output 12/18/18 12/18/18 12/19/18 1515:00 23:00 07:00 IntakeIntake Total 100 ml 900 ml 200 ml OutputOutput Total 800 ml BalanceBalance 100 ml 100 ml 200 ml Exam PHYSICAL EXAMINATION: GENERAL: Alert & oriented x 3, in no acute distress SKIN: No lesions HEAD: Normocephalic, atraumatic, no tenderness. EYES: Pupils equal reactive to light, no discharge. EARS/NOSE AND THROAT: Ears normal, nose normal NECK: Supple, no masses CHEST: Inspection within normal limits. CARDIOVASCULAR: Heart: Regular rate and rhythm RESPIRATORY: Lungs clear to auscultation GASTROINTESTINAL AND LIVER: Abdomen: Soft, LLQ tenderness with palpation, non- distended, no hernias, no masses, no organomegaly, no ascites, no guarding, no rebound tenderness, normoactive bowel sounds. Rectal: Deferred. EXTREMITIES: No cyanosis, clubbing or edema. Results Results 24hrs Laboratory Tests Test 12/19/18 05:55 12/19/18 06:07 Sodium Level 138 Potassium Level 3.6 Chloride Level 108 Carbon Dioxide Level 22 Anion Gap 8 Blood Urea Nitrogen 10 Creatinine 0.86 Est Glomerular Filtrat Rate mL/min Glucose Level 105 Calcium Level 8.2 L Phosphorus Level 2.7 Magnesium Level 2.1 Carcinoembryonic Antigen 1.4 White Blood Count 15.5 H Red Blood Count 3.33 L Hemoglobin 10.1 L Hematocrit 31.3 L Mean Corpuscular Volume 94.0 Mean Corpuscular Hemoglobin 30.3 Mean Corpuscular Hemoglobin Concent 32.3 Red Cell Distribution Width 12.7 Platelet Count 376 Mean Platelet Volume 8.9 Immature Granulocytes % 1.200 H Neutrophils % 82.5 H Lymphocytes % 9.7 L Monocytes % 5.7 Eosinophils % 0.5 Basophils % 0.4 Nucleated Red Blood Cells % 0.0 Immature Granulocytes # 0.180 H Neutrophils # 12.8 H Lymphocytes # 1.5 Monocytes # 0.9 Eosinophils # 0.1 Basophils # 0.1 Nucleated Red Blood Cells # 0.0 Medications Medication Current Medications Dextrose/Sodium Chloride 1,000 ml @ 80 mls/hr [id number] IV Last administered on 12/19/18at 10:58; Admin Dose 80 MLS/HR; Start 12/18/18 at 00:30 IV Flush (NS 3 ml) 3 ml PER PROTOCOL IV ; Start 12/18/18 at 00:30 Ondansetron HCl (Zofran Inj) 4 mg Q6H PRN IV NAUSEA/VOMITING; Start 12/18/18 at 00:30 Morphine Sulfate (morphine) 2 mg Q4H PRN IV .SEVERE PAIN 7-10; Start 12/18/18 at 00:30 Famotidine (Pepcid Iv) 20 mg Q12 IV Last administered on 12/19/18at 08:10; Admin Dose 20 MG; Start 12/18/18 at 09:00 Albuterol/ Ipratropium (Duoneb) 3 ml Q2H RESP THERAPY PRN HHN SHORTNESS OF BREATH; Start 12/18/18 at 00:30 Piperacillin Sod/ Tazobactam Sod 100 ml @ 200 mls/hr Q6 IVPB Last administered on 12/19/18at 18:07; Admin Dose 200 MLS/HR; Start 12/18/18 at 06:00 Enoxaparin Sodium (Lovenox) 30 mg DAILY SC Last administered on 12/19/18at 0 8:17; Admin Dose 30 MG; Start 12/19/18 at 09:00 JOHN PHILLIPS MD Dec 19, 2018 18:19
[2018-12-20] MEDS: PIPER-TAZO 3.375 GM IV (PMX) 100 ML IVPB SCH ×5 (00:06→23:59)
[2018-12-20] MEDS: DEXTROSE 5%-0.45% NACL 1,000 ML IV SCH ×3 (00:06→17:44)
[2018-12-20 02:07] VITALS: BP 143/65; PULSE 61; RESP 16
[2018-12-20 07:37] VITALS: BP 139/66; PULSE 61; RESP 18
[2018-12-20] MEDS: FAMOTIDINE 20 MG INJ IV SCH ×2 (08:46→21:10)
[2018-12-20] MEDS: ENOXAPARIN 30 MG/0.3 ML SYG SC SCH (08:47)
--- NOTE | 2018-12-20 13:43 | PN ---
Date/Time of Note Date/Time of Note DATE: 12/20/18 TIME: 13:37 Assessment/Plan VTE Prophylaxis Risk score (from Ns)>0 risk: 4 SCD applied (from Ns): Yes Pharmacological prophylaxis: other (scds) Lines/Catheters IV Catheter Type (from [facility]): Peripheral IV Assessment/Plan Hospital Course Summary Assessment and Plan: Assessment: Abnormal irregular thickening of the cecum and ascending colon -Concerning for underlying neoplasm -Superimposed colitis and contained microperforation Abdominal pain secondary to above Leukocytosistrending down UTI Plan: Plan to repeat CT with oral contrast today No current plan for endoscopic evaluation. Continue n.p.o. status as well as IV fluids/antibiotics Maintain close observation if patient improves consider colonoscopy in 2-4 weeks however if patient's condition worsens will defer to our surgical colleagues Monitor labs Patient seen in collaboration with Dr. Frederick/Susan Subjective: Course reviewed with nursing staff Patient interviewed and examined All labs, imaging and other results reviewed The patient currently resting in bed, pt feels better after taking a shower today Pain with palpation to LLQ, no c/o nausea or vomiting Maintain close observation PHYSICAL EXAMINATION: GENERAL: Alert & oriented x 3, in no acute distress SKIN: No lesions HEAD: Normocephalic, atraumatic, no tenderness. EYES: Pupils equal reactive to light, no discharge. EARS/NOSE AND THROAT: Ears normal, nose normal NECK: Supple, no masses CHEST: Inspection within normal limits. CARDIOVASCULAR: Heart: Regular rate and rhythm RESPIRATORY: Lungs clear to auscultation GASTROINTESTINAL AND LIVER: Abdomen: Soft, LLQ tenderness with palpation, non- distended, no hernias, no masses, no organomegaly, no ascites, no guarding, no rebound tenderness, normoactive bowel sounds. Rectal: Deferred. EXTREMITIES: No cyanosis, clubbing or edema. Result Diagram: 12/19/18 0607 12/19/18 0555 Results 24hrs Laboratory Tests Test 12/20/18 07:04 Carcinoembryonic Antigen 1.3 Exam/Review of Systems Exam Vitals Vital Signs Date Temp Pulse Resp B/P (MAP) Pulse Ox O2 O2 Flow FiO2 Time Delivery Rate 12/20/18 97.8 61 18 139/66 96 Room Air 07:37 (90) Intake and Output 12/19/18 12/19/18 12/20/18 1414:59 22:59 06:59 IntakeIntake Total 100 ml 1600 ml BalanceBalance 100 ml 1600 ml Results Results 24hrs Laboratory Tests Test 12/20/18 07:04 Carcinoembryonic Antigen 1.3 Medications Medication Current Medications Dextrose/Sodium Chloride 1,000 ml @ 80 mls/hr [id number] IV Last administered on 12/20/18at 00:06; Admin Dose 80 MLS/HR; Start 12/18/18 at 00:30 IV Flush (NS 3 ml) 3 ml PER PROTOCOL IV ; Start 12/18/18 at 00:30 Ondansetron HCl (Zofran Inj) 4 mg Q6H PRN IV NAUSEA/VOMITING; Start 12/18/18 at 00:30 Morphine Sulfate (morphine) 2 mg Q4H PRN IV .SEVERE PAIN 7-10; Start 12/18/18 at 00:30 Famotidine (Pepcid Iv) 20 mg Q12 IV Last administered on 12/20/18at 08:46; Admin Dose 20 MG; Start 12/18/18 at 09:00 Albuterol/ Ipratropium (Duoneb) 3 ml Q2H RESP THERAPY PRN HHN SHORTNESS OF BREATH; Start 12/18/18 at 00:30 Piperacillin Sod/ Tazobactam Sod 100 ml @ 200 mls/hr Q6 IVPB Last administered on 12/20/18at 11:51; Admin Dose 200 MLS/HR; Start 12/18/18 at 06:00 Enoxaparin Sodium (Lovenox) 30 mg DAILY SC Last administered on 12/20/18at 08:47; Admin Dose 30 MG; Start 12/19/18 at 09:00 Barium Sulfate (Readi-Cat 2 ( [employer] )) 900 ml GIVE PRIOR TO CT ONCE PO ; Start 12/20/18 at 14:00; Stop 12/20/18 at 14:01 WILBUR WAHL Dec 20, 2018 13:43
[2018-12-20 14:00] VITALS: BP 165/73; PULSE 62; RESP 18
[2018-12-20] MEDS ORDERED: BARIUM SULF 2% 450 ML BTL (BERRY SMOOTHIE) PO ONE (14:00)
--- NOTE | 2018-12-20 18:41 | PN ---
Date/Time of Note Date/Time of Note DATE: 12/20/18 TIME: 18:40 Assessment/Plan VTE Prophylaxis Risk score (from Nsg)>0 risk: 4 SCD applied (from Nsg): Yes Pharmacological prophylaxis: LMWH Lines/Catheters IV Catheter Type (from Nrsg): Peripheral IV Assessment/Plan Hospital Course Subjective : abd pain is better Objective : General: A&O x3, answering questions appropriately, elderly HEENT: NC/ AT. PERRL. EOM intact Neck: supple CVS: S1, S2, RRR. no murmurs. no pain on chest wall palpation Lungs: CTA b/l. no wheezing or rhonchi Abd: soft, burner tender RLQ with some distention on that side, less guarding Ext: moving all extremities skin: no rashes assessment and plan: 83-year-old female who resides in [facility] presented with severe right lower quadrant abdominal pain now managed for the followin. Acute colitis and contained microperforation with concern for underlying colonic neoplasm -CEA levels 2 sepsis secondary to #1 #3 3. Possible UTI 4. History of hysterectomy for "tumor" Plan: -Appreciate GI input -Spoke in detail with surgery, plan is to continue antibiotics, n.p.o. for now and plan to repeat the CAT scan today . Surgery is not entirely convinced about underlying neoplasm, repeat imaging after the inflammation has improved will give more information. -In the interim, continue all supportive care, IV hydration, n.p.o. except ice chips. Result Diagram: 12/19/18 0607 12/19/18 0555 Results 24hrs Laboratory Tests Test 12/20/18 07:04 Carcinoembryonic Antigen 1.3 Exam/Review of Systems Exam Vitals Vital Signs Date Temp Pulse Resp B/P (MAP) Pulse Ox O2 O2 Flow FiO2 Time Delivery Rate 12/20/18 98.2 62 18 165/73 97 Room Air 14:00 (103) Intake and Output 12/19/18 12/19/18 12/20/18 1515:00 23:00 07:00 IntakeIntake Total 100 ml 1600 ml BalanceBalance 100 ml 1600 ml Results Results 24hrs Laboratory Tests Test 12/20/18 07:04 Carcinoembryonic Antigen 1.3 Medications Medication Current Medications Dextrose/Sodium Chloride 1,000 ml @ 80 mls/hr [id number] IV Last administered on 12/20/18 17:44; Admin Dose 80 MLS/HR; Start 12/18/18 at 00:30 IV Flush (NS 3 ml) 3 ml PER PROTOCOL IV ; Start 12/18/18 at 00:30 Ondansetron HCl (Zofran Inj) 4 mg Q6H PRN IV NAUSEA/VOMITING; Start 12/18/18 at 00:30 Morphine Sulfate (morphine) 2 mg Q4H PRN IV .SEVERE PAIN 7-10; Start 12/18/18 at 00:30 Famotidine (Pepcid Iv) 20 mg Q12 IV Last administered on 12/20/18 08:46; Admin Dose 20 MG; Start 12/18/18 at 09:00 Albuterol/ Ipratropium (Duoneb) 3 ml Q2H RESP THERAPY PRN HHN SHORTNESS OF BREATH; Start 12/18/18 at 00:30 Piperacillin Sod/ Tazobactam Sod 100 ml @ 200 mls/hr Q6 IVPB Last administered on 12/20/18at 17:41; Admin Dose 200 MLS/HR; Start 12/18/18 at 06:00 Enoxaparin Sodium (Lovenox) 30 mg DAILY SC Last administered on 12/20/18 08:47; Admin Dose 30 MG; Start 12/19/18 at 09:00 SAURABH SMAANO Dec 20, 2018 18:41
[2018-12-20 20:00] VITALS: BP 148/65; PULSE 72; RESP 16
[2018-12-21] MEDS: DEXTROSE 5%-0.45% NACL 1,000 ML IV SCH ×3 (00:13→12:43)
[2018-12-21 02:21] VITALS: BP 140/69; PULSE 66; RESP 18
[2018-12-21] MEDS: PIPER-TAZO 3.375 GM IV (PMX) 100 ML IVPB SCH ×3 (05:41→18:32)
--- NOTE | 2018-12-21 06:36 | PN ---
Date/Time of Note Date/Time of Note DATE: 12/21/18 TIME: 06:31 Assessment/Plan VTE Prophylaxis Risk score (from Nsg)>0 risk: 4 SCD applied (from Nsg): Yes Pharmacological prophylaxis: LMWH Lines/Catheters IV Catheter Type (from Nrsg): Peripheral IV Assessment/Plan Hospital Course Subjective : abd pain is better, but she's still quite tender Objective : General: A&O x3, answering questions appropriately, elderly HEENT: NC/ AT. PERRL. EOM intact Neck: supple CVS: S1, S2, RRR. no murmurs. no pain on chest wall palpation Lungs: CTA b/l. no wheezing or rhonchi Abd: soft, swage tender RLQ with some distention on that side, less guarding Ext: moving all extremities skin: no rashes assessment and plan: 83-year-old female who resides in [facility] presented with severe right lower quadrant abdominal pain now managed for the followin. Acute colitis involving cecum, mid ascending colon, terminal ileum 2/2 acute colitis / ileatis vs diverticulitis and less likely neoplastic process also with adjacent primary or secondary appendicitis -there was evidence of microperforation earlier, which are not seen on repeat CT -CEA levels wnl 2 sepsis secondary to #1 #3 3. Possible UTI 4. History of hysterectomy for "tumor" Plan: - There's slow improvement on imaging, will plan to continue current regimen of IV abx and NPO for now -speak with surgery re: nutrition options -appreciate all consults Result Diagram: 12/19/18 0607 12/19/18 0555 Results 24hrs Laboratory Tests Test 12/20/18 07:04 Carcinoembryonic Antigen 1.3 Exam/Review of Systems Exam Vitals Vital Signs Date Temp Pulse Resp B/P (MAP) Pulse Ox O2 O2 Flow FiO2 Time Delivery Rate 12/21/18 98.5 66 18 140/69 99 02:21 (92) 12/20/18 Room Air 14:00 Intake and Output 12/20/18 12/20/18 12/21/18 1515:00 23:00 07:00 IntakeIntake Total 420 ml 380 ml 1000 ml BalanceBalance 420 ml 380 ml 1000 ml Results Results 24hrs Laboratory Tests Test 12/20/18 07:04 Carcinoembryonic Antigen 1.3 Imaging Imaging PROCEDURE: CT abdomen and pelvis with contrast CLINICAL INDICATION: Abdominal pain TECHNIQUE: Continues 2.5 mm axial images were obtained from the domes of the diaphragms to the inferior pubic rami following intravenous injection of 100 cc of Isovue 300. The calculated dose length product (DLP) = 509.38 mGy-cm. Exam CTDlvol = 9.03 mGy. One or more of the following dose reduction techniques were used: Automated exposure control, adjustment of the mA and or KV according to patient size, or use of iterative reconstruction technique. DICOM images are available. COMPARISON: 12/17/2018 FINDINGS: Images through the lung bases demonstrate new small bilateral pleural effusions. There is trace pericardial effusion. Minimal basilar atelectasis is noted. Gallbladder is moderately distended. There is questionable trace pericholecystic fluid. Correlation with ultrasound is recommended. Liver, pancreas, spleen, adrenals, and kidneys are within normal limits. There is no obstructive uropathy. Aorta is normal in caliber and moderately calcified. There are no pathologically enlarged periaortic lymph nodes. Small hiatal hernia is seen. There is thickening of the antrum/pyloric channel may suggest peptic ulcer disease/gastritis. No small bowel dilatation or obstruction is seen. There is no free fluid, free air, abscess in the upper abdomen CT pelvis: As before, there is abnormal thickening of the cecum since the mid ascending colon as well as abnormal thickening of the terminal ileum with adjacent mesenteric stranding and trace free fluid. Scattered diverticuli within the terminal ileum. The appearance is nonspecific but may suggest a inflammatory or infectious colitis, diverticulitis, or neoplastic process. There is a probable appendix is visualized in the retrocecal region which is indistinct with adjacent inflammatory stranding. This may represent a primary appendicitis versus secondary change from the inflammatory process involving the cecum and terminal ileum.. The transverse and the ascending colon demonstrate no significant inflammatory change. There is extensive sigmoid diverticulosis. Bladder is normally distended grossly unremarkable. Uterus is surgically absent. Adnexa are within normal limits. There are no pathologically enlarged iliac chain lymph nodes. No destructive bony lesions are seen. IMPRESSION: 1. Persistent abnormal thickening and inflammation of the cecum extending into the mid ascending colon and terminal ileum with adjacent inflammatory stranding and trace free fluid. The degree of inflammation is not significantly changed from prior examination. There is scattered diverticuli within the terminal ileum . The appearance may suggest an infectious/inflammatory ileal colitis, diverticulitis, or neoplastic process. 2. The appendix is identified in the retrocecal region and appears dilated measuring 1.1 cm with periappendiceal stranding and inflammation; this could represent primary appendicitis versus secondary change. Clinical correlation is advised. 3. Sigmoid diverticulosis without acute diverticulitis 4. No intraperitoneal abscess or free air. The previously questioned small pockets of extraluminal air are no longer visualized. 5. Moderately distended gallbladder with questionable trace pericholecystic fluid. Correlation with ultrasound is recommended. 6. New small bilateral pleural effusions. 7. Trace pericardial effusion. 8. Small hiatal hernia. Benign mild thickening of the gastric antrum and pyloric region suggesting peptic ulcer disease RPTAT: HH .Cruz Riggs MD, MD Date Time Electronically viewed and signed by .Cruz Riggs MD, MD on 12/20/2018 17:42 .W/ CC: SAURABH SAMANO [id number] Medications Medication Current Medications Dextrose/Sodium Chloride 1,000 ml @ 80 mls/hr [id number] IV Last administered on 12/20/18at 17:44; Admin Dose 80 MLS/HR; Start 12/18/18 at 00:30 IV Flush (NS 3 ml) 3 ml PER PROTOCOL IV ; Start 12/18/18 at 00:30 Ondansetron HCl (Zofran Inj) 4 mg Q6H PRN IV NAUSEA/VOMITING; Start 12/18/18 at 00:30 Morphine Sulfate (morphine) 2 mg Q4H PRN IV .SEVERE PAIN 7-10; Start 12/18/18 at 00:30 Famotidine (Pepcid Iv) 20 mg Q12 IV Last administered on 12/20/18at 21:10; Admin Dose 20 MG; Start 12/18/18 at 09:00 Albuterol/ Ipratropium (Duoneb) 3 ml Q2H RESP THERAPY PRN HHN SHORTNESS OF BREATH; Start 12/18/18 at 00:30 Piperacillin Sod/ Tazobactam Sod 100 ml @ 200 mls/hr Q6 IVPB Last administered on 12/21/18at 05:41; Admin Dose 200 MLS/HR; Start 12/18/18 at 06:00 Enoxaparin Sodium (Lovenox) 30 mg DAILY SC Last administered on 12/20/18at 08:47; Admin Dose 30 MG; Start 12/19/18 at 09:00 SAURABH SAMANO Dec 21, 2018 06:36
[2018-12-21 08:06] VITALS: BP 138/61; PULSE 68; RESP 18
[2018-12-21] MEDS: FAMOTIDINE 20 MG INJ IV SCH ×2 (09:47→21:11)
[2018-12-21] MEDS: ENOXAPARIN 30 MG/0.3 ML SYG SC SCH (09:50)
[2018-12-21 14:30] VITALS: BP 145/75; PULSE 69; RESP 18
--- NOTE | 2018-12-21 15:55 | PN ---
Date/Time of Note Date/Time of Note DATE: 12/21/18 TIME: 15:20 Assessment/Plan VTE Prophylaxis Risk score (from Ns)>0 risk: 3 SCD applied (from Ns): Yes Pharmacological prophylaxis: heparin Lines/Catheters [facility]from [facility] Peripheral IV Assessment/Plan Assessment/Plan Assessment: Abnormal irregular thickening of the cecum and ascending colon and TI -Poss. infectious/inflammatory ileal colitis, diverticulitis, or neoplastic process. -periappendiceal stranding and inflammation could represent primary appendicitis versus secondary change. Small hiatal hernia Mild thickening of the gastric antrum and pyloric region suggesting peptic ulcer disease Diverticulosis Moderately distended gallbladder with trace pericholecystic fluid Pleural effusions. Trace pericardial effusion. Abdominal pain - resolved Leukocytosistrending down UTI Plan: Stool for H-pylori Start Protonix 40 mg daily No current plan for endoscopic evaluation. Continue n.p.o. status as well as IV fluids/antibiotics Maintain close observation if patient improves consider EGD/colonoscopy in 2-4 weeks however if patient's condition worsens will defer to our surgical colleagues Monitor labs Patient seen in collaboration with Dr. Frederick/Susan Subjective: Course reviewed with nursing staff Patient interviewed and examined All labs, imaging and other results reviewed The patient currently resting in bed, she spoke to the surgeon about her fear of being put under anesthesia. No plan for surgery at this time Abd pain resolved, no c/o nausea or vomiting. Will start on clear liquid diet. Check stool for H. pylori. Start Protonix daily. Follow-up as an outpatient for EGD/colonoscopy Maintain close observation PHYSICAL EXAMINATION: GENERAL: Alert & oriented x 3, in no acute distress SKIN: No lesions HEAD: Normocephalic, atraumatic, no tenderness. EYES: Pupils equal reactive to light, no discharge. EARS/NOSE AND THROAT: Ears normal, nose normal NECK: Supple, no masses CHEST: Inspection within normal limits. CARDIOVASCULAR: Heart: Regular rate and rhythm RESPIRATORY: Lungs clear to auscultation GASTROINTESTINAL AND LIVER: Abdomen: Soft, no tenderness with palpation, non- distended, no hernias, no masses, no organomegaly, no ascites, no guarding, no rebound tenderness, normoactive bowel sounds. Rectal: Deferred. EXTREMITIES: No cyanosis, clubbing or edema. Result Diagram: 12/19/18 0607 12/19/18 0555 CC: JOHN FREDERICK MD ; Exam/Review of Systems Exam Vitals Vital Signs Date Temp Pulse Resp B/P (MAP) Pulse Ox O2 O2 Flow FiO2 Time Delivery Rate 12/21/18 98.0 68 18 138/61 99 Room Air 08:06 (86) Intake and Output 12/20/18 12/20/18 12/21/18 1515:00 23:00 07:00 IntakeIntake Total 420 ml 380 ml 1000 ml BalanceBalance 420 ml 380 ml 1000 ml Medications Medication Current Medications Dextrose/Sodium Chloride 1,000 ml @ 80 mls/hr [id number] IV Last administered on 12/21/18 09:47; Admin Dose 80 MLS/HR; Start 12/18/18 at 00:30 IV Flush (NS 3 ml) 3 ml PER PROTOCOL IV ; Start 12/18/18 at 00:30 Ondansetron HCl (Zofran Inj) 4 mg Q6H PRN IV NAUSEA/VOMITING; Start 12/18/18 at 00:30 Morphine Sulfate (morphine) 2 mg Q4H PRN IV .SEVERE PAIN 7-10; Start 12/18/18 at 00:30 Famotidine (Pepcid Iv) 20 mg Q12 IV Last administered on 12/21/18 09:47; Admin Dose 20 MG; Start 12/18/18 at 09:00 Albuterol/ Ipratropium (Duoneb) 3 ml Q2H RESP THERAPY PRN HHN SHORTNESS OF BREATH; Start 12/18/18 at 00:30 Piperacillin Sod/ Tazobactam Sod 100 ml @ 200 mls/hr Q6 IVPB Last administered on 12/21/18at 12:20; Admin Dose 200 MLS/HR; Start 12/18/18 at 06:00 Enoxaparin Sodium (Lovenox) 30 mg DAILY SC Last administered on 12/21/18at 09:50; Admin Dose 30 MG; Start 12/19/18 at 09:00 KADEN GRIMES NP Dec 21, 2018 15:34
[2018-12-21 20:00] VITALS: BP 138/66; PULSE 63; RESP 18
[2018-12-22] MEDS: PIPER-TAZO 3.375 GM IV (PMX) 100 ML IVPB SCH ×4 (00:01→17:41)
[2018-12-22] MEDS: DEXTROSE 5%-0.45% NACL 1,000 ML IV SCH ×2 (01:22→15:20)
[2018-12-22 02:00] VITALS: BP 149/68; PULSE 66; RESP 18
[2018-12-22] MEDS: PANTOPRAZOLE 40 MG INJ IV SCH (06:06)
[2018-12-22 08:16] VITALS: BP 151/73; PULSE 63; RESP 17
[2018-12-22] MEDS: FAMOTIDINE 20 MG INJ IV SCH ×2 (09:02→21:12)
[2018-12-22] MEDS: ENOXAPARIN 30 MG/0.3 ML SYG SC SCH (09:06)
--- NOTE | 2018-12-22 11:06 | PN ---
Date/Time of Note Date/Time of Note DATE: 12/22/18 TIME: 10:52 Assessment/Plan VTE Prophylaxis Risk score (from Ns)>0 risk: 4 SCD applied (from Ns): Yes Pharmacological prophylaxis: other (scds) Lines/Catheters IV Catheter Type (from [facility]): Saline Lock Assessment/Plan Hospital Course Assessment/Plan Assessment: Abnormal irregular thickening of the cecum and ascending colon and TI -Poss. infectious/inflammatory ileal colitis, diverticulitis, or neoplastic process. -periappendiceal stranding and inflammation could represent primary appendicitis versus secondary change. Small hiatal hernia Mild thickening of the gastric antrum and pyloric region suggesting peptic ulcer disease Diverticulosis Moderately distended gallbladder with trace pericholecystic fluid Pleural effusions. Trace pericardial effusion. Abdominal pain - resolved Leukocytosistrending down UTI Plan: Increase diet to full liquid no dairy Monitor labs Maintain close observation Patient seen in collaboration with Dr. Frederick/Susan Subjective: Course reviewed with nursing staff Patient interviewed and examined All labs, imaging and other results reviewed Pt is doing well no c/o abd pain n/v with cl liquid diet, will plan to advance to full liquid no dairy Pt does note some diarrhea,pt has had x2 BMs today if increased will order stool studies, WBC wnl. PHYSICAL EXAMINATION: GENERAL: Alert & oriented x 3, in no acute distress SKIN: No lesions HEAD: Normocephalic, atraumatic, no tenderness. EYES: Pupils equal reactive to light, no discharge. EARS/NOSE AND THROAT: Ears normal, nose normal NECK: Supple, no masses CHEST: Inspection within normal limits. CARDIOVASCULAR: Heart: Regular rate and rhythm RESPIRATORY: Lungs clear to auscultation GASTROINTESTINAL AND LIVER: Abdomen: Soft, no tenderness with palpation- impr jean carlos, non-distended, no hernias, no masses, no organomegaly, no ascites, no guarding, no rebound tenderness, normoactive bowel sounds. Rectal: Deferred. EXTREMITIES: No cyanosis, clubbing or edema. Result Diagram: 12/22/18 0613 12/22/18 0613 Results 24hrs Laboratory Tests Test 12/22/18 06:13 White Blood Count 6.2 # Red Blood Count 3.38 L Hemoglobin 10.1 L Hematocrit 31.2 L Mean Corpuscular Volume 92.3 Mean Corpuscular Hemoglobin 29.9 Mean Corpuscular Hemoglobin Concent 32.4 Red Cell Distribution Width 12.5 Platelet Count 394 Mean Platelet Volume 8.4 Immature Granulocytes % 2.000 H Neutrophils % 65.9 Lymphocytes % 20.8 Monocytes % 7.2 Eosinophils % 3.4 Basophils % 0.7 Nucleated Red Blood Cells % 0.0 Immature Granulocytes # 0.120 H Neutrophils # 4.1 Lymphocytes # 1.3 Monocytes # 0.4 Eosinophils # 0.2 Basophils # 0.0 Nucleated Red Blood Cells # 0.0 Sodium Level 143 Potassium Level 3.0 L Chloride Level 110 Carbon Dioxide Level 25 Anion Gap 8 Blood Urea Nitrogen 3 L Creatinine 0.81 Est Glomerular Filtrat Rate mL/min Glucose Level 108 Calcium Level 8.3 L Magnesium Level 1.8 Exam/Review of Systems Exam Vitals Vital Signs Date Temp Pulse Resp B/P (MAP) Pulse Ox O2 O2 Flow FiO2 Time Delivery Rate 12/22/18 97.2 63 17 151/73 98 08:16 (99) 12/21/18 Room Air 14:30 Intake and Output 12/21/18 12/21/18 12/22/18 1515:00 23:00 07:00 IntakeIntake Total 580 ml 1600 ml BalanceBalance 580 ml 1600 ml Results Results 24hrs Laboratory Tests Test 12/22/18 06:13 White Blood Count 6.2 # Red Blood Count 3.38 L Hemoglobin 10.1 L Hematocrit 31.2 L Mean Corpuscular Volume 92.3 Mean Corpuscular Hemoglobin 29.9 Mean Corpuscular Hemoglobin Concent 32.4 Red Cell Distribution Width 12.5 Platelet Count 394 Mean Platelet Volume 8.4 Immature Granulocytes % 2.000 H Neutrophils % 65.9 Lymphocytes % 20.8 Monocytes % 7.2 Eosinophils % 3.4 Basophils % 0.7 Nucleated Red Blood Cells % 0.0 Immature Granulocytes # 0.120 H Neutrophils # 4.1 Lymphocytes # 1.3 Monocytes # 0.4 Eosinophils # 0.2 Basophils # 0.0 Nucleated Red Blood Cells # 0.0 Sodium Level 143 Potassium Level 3.0 L Chloride Level 110 Carbon Dioxide Level 25 Anion Gap 8 Blood Urea Nitrogen 3 L Creatinine 0.81 Est Glomerular Filtrat Rate mL/min Glucose Level 108 Calcium Level 8.3 L Magnesium Level 1.8 Medications Medication Current Medications Dextrose/Sodium Chloride 1,000 ml @ 80 mls/hr [id number] IV Last administered on 12/22/18at 01:22; Admin Dose 80 MLS/HR; Start 12/18/18 at 00:30 IV Flush (NS 3 ml) 3 ml PER PROTOCOL IV ; Start 12/18/18 at 00:30 Ondansetron HCl (Zofran Inj) 4 mg Q6H PRN IV NAUSEA/VOMITING; Start 12/18/18 at 00:30 Morphine Sulfate (morphine) 2 mg Q4H PRN IV .SEVERE PAIN 7-10; Start 12/18/18 at 00:30 Famotidine (Pepcid Iv) 20 mg Q12 IV Last administered on 12/22/18 09:02; Admin Dose 20 MG; Start 12/18/18 at 09:00 Albuterol/ Ipratropium (Duoneb) 3 ml Q2H RESP THERAPY PRN HHN SHORTNESS OF BREATH; Start 12/18/18 at 00:30 Piperacillin Sod/ Tazobactam Sod 100 ml @ 200 mls/hr Q6 IVPB Last administered on 12/22/18 06:06; Admin Dose 200 MLS/HR; Start 12/18/18 at 06:00 Enoxaparin Sodium (Lovenox) 30 mg DAILY SC Last administered on 12/22/18 09:06; Admin Dose 30 MG; Start 12/19/18 at 09:00 Pantoprazole (Protonix Iv) 40 mg DAILY@06 IV Last administered on 12/22/18 06:06; Admin Dose 40 MG; Start 12/22/18 at 06:00 WILBUR WAHL Dec 22, 2018 11:03
--- NOTE | 2018-12-22 11:23 | PN ---
Date/Time of Note Date/Time of Note DATE: 12/22/18 TIME: 11:22 Objective Vitals Vital Signs Date Temp Pulse Resp B/P (MAP) Pulse Ox O2 O2 Flow FiO2 Time Delivery Rate 12/22/18 97.2 63 17 151/73 98 08:16 (99) 12/21/18 Room Air 14:30 Intake and Output 12/21/18 12/21/18 12/22/18 1515:00 23:00 07:00 IntakeIntake Total 580 ml 1600 ml BalanceBalance 580 ml 1600 ml Results Result Diagram: 12/22/1861212/22/18612 Medications Medications Current Medications Dextrose/Sodium Chloride 1,000 ml @ 80 mls/hr [id number] IV Last administered on 12/22/18at 01:22; Admin Dose 80 MLS/HR; Start 12/18/18 at 00:30 IV Flush (NS 3 ml) 3 ml PER PROTOCOL IV ; Start 12/18/18 at 00:30 Ondansetron HCl (Zofran Inj) 4 mg Q6H PRN IV NAUSEA/VOMITING; Start 12/18/18 at 00:30 Morphine Sulfate (morphine) 2 mg Q4H PRN IV .SEVERE PAIN 7-10; Start 12/18/18 at 00:30 Famotidine (Pepcid Iv) 20 mg Q12 IV Last administered on 12/22/18at 09:02; Admin Dose 20 MG; Start 12/18/18 at 09:00 Albuterol/ Ipratropium (Duoneb) 3 ml Q2H RESP THERAPY PRN HHN SHORTNESS OF BREATH; Start 12/18/18 at 00:30 Piperacillin Sod/ Tazobactam Sod 100 ml @ 200 mls/hr Q6 IVPB Last administered on 12/22/18at 06:06; Admin Dose 200 MLS/HR; Start 12/18/18 at 06:00 Enoxaparin Sodium (Lovenox) 30 mg DAILY SC Last administered on 12/22/18at 09:06; Admin Dose 30 MG; Start 12/19/18 at 09:00 Pantoprazole (Protonix Iv) 40 mg DAILY@06 IV Last administered on 12/22/18at 06:06; Admin Dose 40 MG; Start 12/22/18 at 06:00 Potassium Chloride (Klor-Con 20) 40 meq Q4H PO ; Start 12/22/18 at 11:30; Stop 12/22/18 at 15:31 VTE Prophylaxis Risk score (from Ns)>0 risk: 4 SCD applied (from [facility] [place]): Yes Lines/Catheters IV Catheter Type: Mishra in Place: No Assessment/Plan Hospital Course Subjective Patient states that she is still having diarrhea, however appears to be mildly improving, patient also states abdominal pain is been mildly improving as well Objective Physical exam General: Patient is laying in bed and answers questions appropriately Mentation: Patient is alert and oriented 4, Head: Normocephalic atraumatic Eyes: EOMI, pupils reactive to light Neck: Supple, nontender, midline Respiratory: Clear to auscultation bilaterally Cardiovascular: regular rate, no obvious murmurs Gastrointestinal: Mild to moderate right lower quadrant tenderness to palpation, bowel sounds heard. Neurological: Moves all extremities spontaneously Skin: No new skin lesions Assessment and plan Right lower quadrant pain, secondary to diverticulitis -Colitis versus diverticulitis versus less less likely neoplastic process -GI and ID consulted -Continue IV antibiotic -GI to order stool cultures as needed -Second CT not showing evidence of microperforation Sepsis -Cultures -Resolving Question of a UTI -Patient already on antibiotics for above diverticulitis History of hysterectomy -Monitor Disposition -Increase diet per GI, infectious disease consultation pending, likely discharge in 1 or 2 days depending on symptoms. ARSALAN BARILLAS Dec 22, 2018 11:23
[2018-12-22] MEDS: POTASSIUM CHLORIDE (SR) 20 MEQ TAB PO SCH ×2 (12:45→15:22)
[2018-12-22 14:48] VITALS: BP 158/69; PULSE 62; RESP 19
--- NOTE | 2018-12-22 17:17 | CONS ---
DATE OF ADMISSION: 12/18/2018 DATE OF CONSULTATION: 12/22/2018 TYPE OF CONSULTATION: Infectious disease. REASON FOR CONSULTATION: Antibiotic management. HISTORY OF PRESENT ILLNESS: Mary Reyes is an 83-year-old female who comes in with [facility] lower quadrant abdominal pain and diarrhea intermittently for the last 2 weeks prior to admission . The patient complains of bilateral lower quadrant abdominal pain as well as diarrhea. She said sh e had 5 to 7 episodes of diarrhea per day. Pain is mild to moderate in intensity. PAST SURGICAL HISTORY: Includes bilateral salpingo-oophorectomy. FAMILY HISTORY: Positive for pneumonia. FAMILY HISTORY: Noncontributory. SOCIAL HISTORY: She is a former smoker. She drank in the past. She does not use drugs. ALLERGIES: NONE TO PENICILLIN, SULFA OR FOODS. MEDICATIONS: Per chart. REVIEW OF SYSTEMS: As per HPI. PHYSICAL EXAMINATION: GENERAL: The patient is awake, responsive, in no acute distress. VITAL SIGNS: Stable. She is afebrile. SKIN: Without generalized rash. HEENT: Within normal limits. NECK: Supple. LYMPH NODES: None palpable. CHEST: Decreased breath sounds at the bases. HEART: Without murmur or gallop. ABDOMEN: Soft, with some tenderness bilaterally in the lower quadrants, without rebound. EXTREMITIES: Without cyanosis, clubbing, or edema. RECTAL AND GENITAL: Deferred. NEUROLOGIC: No focal neurological abnormality. ANCILLARY LABORATORY DATA: Her white count is 18.9 on admission on the 25th with 81% neutrophils, H and H 10.8 and 33.6, platelet count 375. BUN and creatinine 14/0.89, glucose 111. Urine shows 3+ le ukocyte esterase, 25 white cells per high-power field. IMPRESSION AND PLAN: The patient was initially placed on vancomycin and Zosyn for broad spectrum ant ibiotic coverage. The patient was thought to have colitis with possible underlying neoplasm, possibl e microperforations. CT scan of the abdomen and pelvis was done. Her chest x-ray showed no intratho racic pathology. CT scan of the abdomen and pelvis showed abnormal irregular thickening of the cecum and ascending colon concerning for underlying colonic neoplasm with superimposed colitis and contain ed microperforation with small punctate foci of extraluminal gas adjacent to the cecum, without evide nce for organized collection to suggest an abscess. Appendicitis and right colonic diverticulitis ar e differential diagnostic possibilities, believed to be less likely. Moderate sized sliding hiatal h ernia, prior hysterectomy, diverticular disease of the distal colon without diverticulitis in these l ocations, bilateral renal cortex thickening and borderline renal atrophy, atherosclerotic calcificati ons of the aorta and iliac systems, generalized demineralization with lower lumbar degenerative disk disease. A repeat CT scan was done on the with persistent abnormal thickening and inflammation of the cecum extending into the mid ascending colon and terminal ileum with adjacent inflammatory str anding and trace free fluids. Scattered diverticula within the terminal ileum suggestive of an infec tious or inflammatory ileocolitis, diverticulitis or neoplastic process. The rest of the report is s imilar to the previous one. MICROBIOLOGY: Blood cultures are negative. MRSA screen is negative. HOSPITAL COURSE: The patient was seen by Tiffany Francis in GI consultation with Dr. Frederick. No plan for endoscopic evaluation. CT scan was considered very high risk for perforation, conservative management is suggested. The patient to remain on Zosyn. If the patient improves, consider EGD and colonoscopy in 2 to 4 weeks. If patient worsens, will defer to the surgical consultants. She was se en today by Dr. Nino Bright and Tiffany Francis. White count 6.2. The patient is still having some diarrhea, but appears to be mildly improving. Abdominal pain is mildly improving as well. I would c ontinue her on current therapy and when she is ready for discharge, I would probably place her on eit her Levaquin or Cipro and Flagyl for an additional 10 days to 2 weeks. I will dictate my findings to the hospitalists and to the afore-mentioned consultants. Dictated By: OPAL ASIF MD, JD/JEMIMA Conf#: [id number] DID#: [id number] CC: DIAMOND IRIZARRY MD;*EndCC*
[2018-12-22 20:35] VITALS: BP 150/72; PULSE 75; RESP 18
[2018-12-23] MEDS: PIPER-TAZO 3.375 GM IV (PMX) 100 ML IVPB SCH ×2 (00:05→05:59)
[2018-12-23 02:09] VITALS: BP 128/60; PULSE 66; RESP 19
[2018-12-23] MEDS: DEXTROSE 5%-0.45% NACL 1,000 ML IV SCH ×4 (02:13→20:36)
[2018-12-23] MEDS: PANTOPRAZOLE 40 MG INJ IV SCH (06:00)
[2018-12-23 07:39] VITALS: BP 146/67; PULSE 60; RESP 20
[2018-12-23] MEDS: FAMOTIDINE 20 MG INJ IV SCH ×2 (09:07→20:36)
[2018-12-23] MEDS: ENOXAPARIN 30 MG/0.3 ML SYG SC SCH (09:08)
--- NOTE | 2018-12-23 12:56 | PN ---
Date/Time of Note Date/Time of Note DATE: 12/23/18 TIME: 12:55 Objective Vitals Vital Signs Date Temp Pulse Resp B/P (MAP) Pulse Ox O2 O2 Flow FiO2 Time Delivery Rate 12/23/18 97.7 60 20 146/67 99 07:39 (93) 12/21/18 Room Air 14:30 Intake and Output 12/22/18 12/22/18 12/23/18 1515:00 23:00 07:00 IntakeIntake Total 1080 ml 1255 ml 925 ml OutputOutput Total 800 ml BalanceBalance 1080 ml 455 ml 925 ml Results Result Diagram: 12/23/18 0537 12/23/18 0537 Medications Medications Current Medications Dextrose/Sodium Chloride 1,000 ml @ 80 mls/hr [id number] IV Last administered on 12/23/18at 05:59; Admin Dose 80 MLS/HR; Start 12/18/18 at 00:30 IV Flush (NS 3 ml) 3 ml PER PROTOCOL IV ; Start 12/18/18 at 00:30 Ondansetron HCl (Zofran Inj) 4 mg Q6H PRN IV NAUSEA/VOMITING; Start 12/18/18 at 00:30 Morphine Sulfate (morphine) 2 mg Q4H PRN IV .SEVERE PAIN 7-10; Start 12/18/18 at 00:30 Famotidine (Pepcid Iv) 20 mg Q12 IV Last administered on 12/23/18at 09:07; Admin Dose 20 MG; Start 12/18/18 at 09:00 Albuterol/ Ipratropium (Duoneb) 3 ml Q2H RESP THERAPY PRN HHN SHORTNESS OF BREATH; Start 12/18/18 at 00:30 Enoxaparin Sodium (Lovenox) 30 mg DAILY SC Last administered on 12/23/18at 09:08; Admin Dose 30 MG; Start 12/19/18 at 09:00 Pantoprazole (Protonix Iv) 40 mg DAILY@06 IV Last administered on 12/23/18at 06 :00; Admin Dose 40 MG; Start 12/22/18 at 06:00 Ciprofloxacin/ Dextrose 200 ml @ 200 mls/hr Q12 IVPB ; Start 12/23/18 at 21:00 Metronidazole 100 ml @ 100 mls/hr Q8 IVPB ; Start 12/23/18 at 14:00 VTE Prophylaxis Risk score (from Nsg)>0 risk: 4 SCD applied (from Ns): Yes Lines/Catheters IV Catheter Type: Mishra in Place: No Assessment/Plan Hospital Course Subjective Patient abdominal pain and diarrhea improving Objective Physical exam General: Patient is laying in bed and answers questions appropriately Mentation: Patient is alert and oriented 4, Head: Normocephalic atraumatic Eyes: EOMI, pupils reactive to light Neck: Supple, nontender, midline Respiratory: Clear to auscultation bilaterally Cardiovascular: regular rate, no obvious murmurs Gastrointestinal: Mild right lower quadrant tenderness to palpation, bowel sounds heard. Neurological: Moves all extremities spontaneously Skin: No new skin lesions Assessment and plan Right lower quadrant pain, secondary to diverticulitis -Colitis versus diverticulitis versus less less likely neoplastic process -GI and ID consulted -Continue IV antibiotic, switched to Cipro and Flagyl -GI to order stool cultures as needed -Second CT not showing evidence of microperforation Sepsis -Cultures -Resolving Question of a UTI -Patient already on antibiotics for above diverticulitis History of hysterectomy -Monitor Disposition -Switch antibiotics to Cipro Flagyl, patient tolerating antibiotics well, and resolution of diarrhea and abdominal pain, may DC tomorrow with orals. ARSALAN BARILLAS Dec 23, 2018 12:56
--- NOTE | 2018-12-23 13:20 | PN ---
Date/Time of Note Date/Time of Note DATE: 12/23/18 TIME: 13:13 Assessment/Plan VTE Prophylaxis Risk score (from Ns)>0 risk: 4 SCD applied (from Ns): Yes Pharmacological prophylaxis: other (scds) Lines/Catheters IV Catheter Type (from [facility]): Urinary Cath still in place: No Assessment/Plan Hospital Course Assessment/Plan Assessment: Abnormal irregular thickening of the cecum and ascending colon and TI -Poss. infectious/inflammatory ileal colitis, diverticulitis, or neoplastic process. -periappendiceal stranding and inflammation could represent primary appendicitis versus secondary change. Small hiatal hernia Mild thickening of the gastric antrum and pyloric region suggesting peptic ulcer disease Diverticulosis Moderately distended gallbladder with trace pericholecystic fluid Pleural effusions. Trace pericardial effusion. Abdominal pain - resolved Leukocytosisresolved UTI Plan: Continue abx soft diet poss d/c tomorrow if patient remains stable Pt to f/u with GI after discharge, for out-pt EGD/colonoscopy- pt to continue PPI after discharge until seen by GI Patient seen in collaboration with Dr. Frederick/Susan Subjective: Course reviewed with nursing staff Patient interviewed and examined All labs, imaging and other results reviewed Diarrhea improved, neg for CDIFF, she doing well with full liquid diet No c/o n/v or abd pain even with palpation. No overt signs of GI bleed, HGB sta ble PHYSICAL EXAMINATION: GENERAL: Alert & oriented x 3, in no acute distress SKIN: No lesions HEAD: Normocephalic, atraumatic, no tenderness. EYES: Pupils equal reactive to light, no discharge. EARS/NOSE AND THROAT: Ears normal, nose normal NECK: Supple, no masses CHEST: Inspection within normal limits. CARDIOVASCULAR: Heart: Regular rate and rhythm RESPIRATORY: Lungs clear to auscultation GASTROINTESTINAL AND LIVER: Abdomen: Soft, no tenderness with palpation- resolved, non-distended, no hernias, no masses, no organomegaly, no ascites, no guarding, no rebound tenderness, normoactive bowel sounds. Rectal: Deferred. EXTREMITIES: No cyanosis, clubbing or edema. Result Diagram: 12/23/18 0537 12/23/18 0537 Results 24hrs Laboratory Tests Test 12/23/18 05:37 White Blood Count 7.0 Red Blood Count 3.19 L Hemoglobin 9.8 L Hematocrit 30.2 L Mean Corpuscular Volume 94.7 Mean Corpuscular Hemoglobin 30.7 Mean Corpuscular Hemoglobin Concent 32.5 Red Cell Distribution Width 12.9 Platelet Count 397 Mean Platelet Volume 8.9 Immature Granulocytes % 1.700 H Neutrophils % 68.2 Lymphocytes % 19.0 Monocytes % 8.0 Eosinophils % 2.4 Basophils % 0.7 Nucleated Red Blood Cells % 0.0 Immature Granulocytes # 0.120 H Neutrophils # 4.8 Lymphocytes # 1.3 Monocytes # 0.6 Eosinophils # 0.2 Basophils # 0.1 Nucleated Red Blood Cells # 0.0 Sodium Level 143 Potassium Level 3.6 Chloride Level 114 H Carbon Dioxide Level 22 Anion Gap 7 Blood Urea Nitrogen 2 L Creatinine 0.82 Est Glomerular Filtrat Rate mL/min Glucose Level 95 Calcium Level 8.5 Phosphorus Level 2.9 Magnesium Level 1.8 Exam/Review of Systems Exam Vitals Vital Signs Date Temp Pulse Resp B/P (MAP) Pulse Ox O2 O2 Flow FiO2 Time Delivery Rate 12/23/18 97.7 60 20 146/67 99 07:39 (93) 12/21/18 Room Air 14:30 Intake and Output 12/22/18 12/22/18 12/23/18 1414:59 22:59 06:59 IntakeIntake Total 1080 ml 1255 ml 925 ml OutputOutput Total 800 ml BalanceBalance 1080 ml 455 ml 925 ml Results Results 24hrs Laboratory Tests Test 12/23/18 05:37 White Blood Count 7.0 Red Blood Count 3.19 L Hemoglobin 9.8 L Hematocrit 30.2 L Mean Corpuscular Volume 94.7 Mean Corpuscular Hemoglobin 30.7 Mean Corpuscular Hemoglobin Concent 32.5 Red Cell Distribution Width 12.9 Platelet Count 397 Mean Platelet Volume 8.9 Immature Granulocytes % 1.700 H Neutrophils % 68.2 Lymphocytes % 19.0 Monocytes % 8.0 Eosinophils % 2.4 Basophils % 0.7 Nucleated Red Blood Cells % 0.0 Immature Granulocytes # 0.120 H Neutrophils # 4.8 Lymphocytes # 1.3 Monocytes # 0.6 Eosinophils # 0.2 Basophils # 0.1 Nucleated Red Blood Cells # 0.0 Sodium Level 143 Potassium Level 3.6 Chloride Level 114 H Carbon Dioxide Level 22 Anion Gap 7 Blood Urea Nitrogen 2 L Creatinine 0.82 Est Glomerular Filtrat Rate mL/min Glucose Level 95 Calcium Level 8.5 Phosphorus Level 2.9 Magnesium Level 1.8 Medications Medication Current Medications Dextrose/Sodium Chloride 1,000 ml @ 80 mls/hr [id number] IV Last administered on 12/23/18at 05:59; Admin Dose 80 MLS/HR; Start 12/18/18 at 00:30 IV Flush (NS 3 ml) 3 ml PER PROTOCOL IV ; Start 12/18/18 at 00:30 Ondansetron HCl (Zofran Inj) 4 mg Q6H PRN IV NAUSEA/VOMITING; Start 12/18/18 at 00:30 Morphine Sulfate (morphine) 2 mg Q4H PRN IV .SEVERE PAIN 7-10; Start 12/18/18 at 00:30 Famotidine (Pepcid Iv) 20 mg Q12 IV Last administered on 12/23/18at 09:07; Admin Dose 20 MG; Start 12/18/18 at 09:00 Albuterol/ Ipratropium (Duoneb) 3 ml Q2H RESP THERAPY PRN HHN SHORTNESS OF BREATH; Start 12/18/18 at 00:30 Enoxaparin Sodium (Lovenox) 30 mg DAILY SC Last administered on 12/23/18at 09:08; Admin Dose 30 MG; Start 12/19/18 at 09:00 Pantoprazole (Protonix Iv) 40 mg DAILY@06 IV Last administered on 12/23/18at 06:00; Admin Dose 40 MG; Start 12/22/18 at 06:00 Ciprofloxacin/ Dextrose 200 ml @ 200 mls/hr Q12 IVPB ; Start 12/23/18 at 21:00 Metronidazole 100 ml @ 100 mls/hr Q8 IVPB ; Start 12/23/18 at 14:00 WILBUR WAHL Dec 23, 2018 13:20
[2018-12-23 14:16] VITALS: BP 145/65; PULSE 72; RESP 20
[2018-12-23] MEDS: metroNIDAZOLE 500 MG/NS (PMX) 100 ML IVPB SCH ×2 (14:20→22:08)
--- NOTE | 2018-12-23 16:45 | CONS ---
Assessment/Plan Assessment/Plan Hospital Course (Demo Recall) Patient is alert feels much better looks comfortable no fevers overnight WBC today 7 no shift no bands BUN to creatinine 0.82 Antimicrobials: Cipro Flagyl Physical examination: Well-nourished well-developed very pleasant elderly woman who is alert in no distress. Head atraumatic normocephalic neck is supple chest rise symmetrical breath sounds diminished bases heart: S1-S2. Abdomen soft bowel sounds present extremities without cyanosis Assessment: 1. Acute diverticulitis, resolving 2. Status post sepsis Plan: Patient is doing much better, continue present care, anticipate discharge on oral antibiotics for 5 more days Consultation Date/Type/Reason Admit Date/Time Dec 18, 2018 at 00:11 Initial Consult Date 12/19/18 Type of Consult id Requesting Provider: SAURABH SAMANO Date/Time of Note DATE: 12/23/18 TIME: 16:44 Exam/Review of Systems Exam Vitals Vital Signs Date Temp Pulse Resp B/P (MAP) Pulse Ox O2 O2 Flow FiO2 Time Delivery Rate 12/23/18 97.9 72 20 145/65 99 14:16 (91) 12/21/18 Room Air 14:30 Intake and Output 12/22/18 12/22/18 12/23/18 1515:00 23:00 07:00 IntakeIntake Total 1080 ml 1255 ml 925 ml OutputOutput Total 800 ml BalanceBalance 1080 ml 455 ml 925 ml Results Result Diagram: 12/23/18 0537 12/23/18 0537 Results 24hrs Laboratory Tests Test 12/23/18 05:37 White Blood Count 7.0 Red Blood Count 3.19 L Hemoglobin 9.8 L Hematocrit 30.2 L Mean Corpuscular Volume 94.7 Mean Corpuscular Hemoglobin 30.7 Mean Corpuscular Hemoglobin Concent 32.5 Red Cell Distribution Width 12.9 Platelet Count 397 Mean Platelet Volume 8.9 Immature Granulocytes % 1.700 H Neutrophils % 68.2 Lymphocytes % 19.0 Monocytes % 8.0 Eosinophils % 2.4 Basophils % 0.7 Nucleated Red Blood Cells % 0.0 Immature Granulocytes # 0.120 H Neutrophils # 4.8 Lymphocytes # 1.3 Monocytes # 0.6 Eosinophils # 0.2 Basophils # 0.1 Nucleated Red Blood Cells # 0.0 Sodium Level 143 Potassium Level 3.6 Chloride Level 114 H Carbon Dioxide Level 22 Anion Gap 7 Blood Urea Nitrogen 2 L Creatinine 0.82 Est Glomerular Filtrat Rate mL/min Glucose Level 95 Calcium Level 8.5 Phosphorus Level 2.9 Magnesium Level 1.8 Medications Medication Current Medications Dextrose/Sodium Chloride 1,000 ml @ 80 mls/hr [id number] IV Last administered on 12/23/18at 05:59; Admin Dose 80 MLS/HR; Start 12/18/18 at 00:30 IV Flush (NS 3 ml) 3 ml PER PROTOCOL IV ; Start 12/18/18 at 00:30 Ondansetron HCl (Zofran Inj) 4 mg Q6H PRN IV NAUSEA/VOMITING; Start 12/18/18 at 00:30 Morphine Sulfate (morphine) 2 mg Q4H PRN IV .SEVERE PAIN 7-10; Start 12/18/18 a t 00:30 Famotidine (Pepcid Iv) 20 mg Q12 IV Last administered on 12/23/18at 09:07; Admin Dose 20 MG; Start 12/18/18 at 09:00 Albuterol/ Ipratropium (Duoneb) 3 ml Q2H RESP THERAPY PRN HHN SHORTNESS OF BREATH; Start 12/18/18 at 00:30 Enoxaparin Sodium (Lovenox) 30 mg DAILY SC Last administered on 12/23/18at 09:08; Admin Dose 30 MG; Start 12/19/18 at 09:00 Ciprofloxacin/ Dextrose 200 ml @ 200 mls/hr Q12 IVPB ; Start 12/23/18 at 21:00 Metronidazole 100 ml @ 100 mls/hr Q8 IVPB Last administered on 12/23/18at 14:20; Admin Dose 100 MLS/HR; Start 12/23/18 at 14:00 Pantoprazole (Protonix Tab) 40 mg DAILY@06 PO ; Start 12/24/18 at 06:00 JULIUS PARKER NP Dec 23, 2018 16:44
[2018-12-23 19:59] VITALS: BP 140/65; PULSE 68; RESP 18
[2018-12-23] MEDS: CIPROFLOXACIN 400MG/D5W 200 ML IVPB SCH (20:36)
[2018-12-24 02:00] VITALS: BP 139/69; PULSE 68; RESP 18
[2018-12-24] MEDS: DEXTROSE 5%-0.45% NACL 1,000 ML IV SCH ×2 (03:13→15:43)
[2018-12-24] MEDS: metroNIDAZOLE 500 MG/NS (PMX) 100 ML IVPB SCH (06:00)
[2018-12-24] MEDS ORDERED: PANTOPRAZOLE (EC) 40 MG TAB PO SCH (06:00)
[2018-12-24 07:40] VITALS: BP 149/67; PULSE 64; RESP 20
[2018-12-24] MEDS: CIPROFLOXACIN 400MG/D5W 200 ML IVPB SCH (09:02)
[2018-12-24] MEDS: FAMOTIDINE 20 MG INJ IV SCH (09:02)
[2018-12-24] MEDS: ENOXAPARIN 30 MG/0.3 ML SYG SC SCH (09:08)
--- NOTE | 2018-12-24 11:01 | CONS ---
Assessment/Plan Assessment/Plan Hospital Course (Demo Recall) No events per report, no fevers, no n/v/d, pt tolerates diet Antimicrobials: Cipro Flagyl Physical examination: Well-nourished well-developed very pleasant elderly woman who is alert in no distress. Head atraumatic normocephalic neck is supple chest rise symmetrical breath sounds diminished bases heart: S1-S2. Abdomen soft bowel sounds present extremities without cyanosis Assessment: 1. Acute diverticulitis, resolving 2. Status post sepsis Plan: Stable, anticipate discharge on current po antibiotics for 5 more days Consultation Date/Type/Reason Admit Date/Time Dec 18, 2018 at 00:11 Initial Consult Date 12/19/18 Type of Consult id Requesting Provider: SAURABH SAMANO Date/Time of Note DATE: 12/24/18 TIME: 10:59 Exam/Review of Systems Exam Vitals Vital Signs Date Temp Pulse Resp B/P (MAP) Pulse Ox O2 O2 Flow FiO2 Time Delivery Rate 12/24/18 98.4 64 20 149/67 99 07:40 (94) 12/21/18 Room Air 14:30 Intake and Output 12/23/18 12/23/18 12/24/18 1515:00 23:00 07:00 IntakeIntake Total 1120 ml 2120 ml 660 ml BalanceBalance 1120 ml 2120 ml 660 ml Results Result Diagram: 12/24/18 0558 12/24/18 0558 Results 24hrs Laboratory Tests Test 12/24/18 05:58 White Blood Count 7.0 Red Blood Count 3.58 L Hemoglobin 10.9 L Hematocrit 33.4 L Mean Corpuscular Volume 93.3 Mean Corpuscular Hemoglobin 30.4 Mean Corpuscular Hemoglobin Concent 32.6 Red Cell Distribution Width 13.1 Platelet Count 410 Mean Platelet Volume 8.9 Immature Granulocytes % 3.300 H Neutrophils % 61.4 Lymphocytes % 22.5 Monocytes % 9.0 Eosinophils % 2.8 Basophils % 1.0 Nucleated Red Blood Cells % 0.0 Immature Granulocytes # 0.230 H Neutrophils # 4.3 Lymphocytes # 1.6 Monocytes # 0.6 Eosinophils # 0.2 Basophils # 0.1 Nucleated Red Blood Cells # 0.0 Sodium Level 142 Potassium Level 3.9 Chloride Level 109 Carbon Dioxide Level 23 Anion Gap 10 Blood Urea Nitrogen < 2 L Creatinine 0.77 Est Glomerular Filtrat Rate mL/min Glucose Level 90 Calcium Level 8.9 Phosphorus Level 2.9 Magnesium Level 1.7 Medications Medication Current Medications Dextrose/Sodium Chloride 1,000 ml @ 80 mls/hr [id number] IV Last administered on 12/23/18 20:36; Admin Dose 80 MLS/HR; Start 12/18/18 at 00:30 IV Flush (NS 3 ml) 3 ml PER PROTOCOL IV ; Start 12/18/18 at 00:30 Ondansetron HCl (Zofran Inj) 4 mg Q6H PRN IV NAUSEA/VOMITING; Start 12/18/18 at 00:30 Morphine Sulfate (morphine) 2 mg Q4H PRN IV .SEVERE PAIN 7-10; Start 12/18/18 at 00:30 Famotidine (Pepcid Iv) 20 mg Q12 IV Last administered on 12/24/18 09:02; Admin Dose 20 MG; Start 12/18/18 at 09:00 Albuterol/ Ipratropium (Duoneb) 3 ml Q2H RESP THERAPY PRN HHN SHORTNESS OF BREATH; Start 12/18/18 at 00:30 Enoxaparin Sodium (Lovenox) 30 mg DAILY SC Last administered on 12/24/18 09:08; Admin Dose 30 MG; Start 12/19/18 at 09:00 Ciprofloxacin/ Dextrose 200 ml @ 200 mls/hr Q12 IVPB Last administered on 12/24/18 09:02; Admin Dose 200 MLS/HR; Start 12/23/18 at 21:00 Metronidazole 100 ml @ 100 mls/hr Q8 IVPB Last administered on 12/24/18 06:00; Admin Dose 100 MLS/HR; Start 12/23/18 at 14:00 Pantoprazole (Protonix Tab) 40 mg DAILY@06 PO Last administered on 12/24/18 05:59; Admin Dose 40 MG; Start 12/24/18 at 06:00 JULIUS PARKER NP Dec 24, 2018 11:01
--- NOTE | 2018-12-24 13:13 | PN ---
Date/Time of Note Date/Time of Note DATE: 12/24/18 TIME: 13:12 Assessment/Plan VTE Prophylaxis Risk score (from Ns)>0 risk: 4 SCD applied (from Ns): Yes Pharmacological prophylaxis: other (scds) Lines/Catheters IV [facility]from [facility] Peripheral IV Urinary Cath still in place: No Assessment/Plan Hospital Course Assessment/Plan Assessment: Abnormal irregular thickening of the cecum and ascending colon and TI -Poss. infectious/inflammatory ileal colitis, diverticulitis, or neoplastic process. -periappendiceal stranding and inflammation could represent primary appendicitis versus secondary change. Small hiatal hernia Mild thickening of the gastric antrum and pyloric region suggesting peptic ulcer disease Diverticulosis Moderately distended gallbladder with trace pericholecystic fluid Pleural effusions. Trace pericardial effusion. Abdominal pain - resolved Leukocytosisresolved UTI Plan: ABX changed to PO soft diet Pt to f/u with GI after discharge, for out-pt EGD/colonoscopy- pt to continue PPI after discharge until seen by GI Pt cleared from GI point of view for discharge if able to tolerate diet Patient seen in collaboration with Dr. Frederick/Susan Subjective: Course reviewed with nursing staff Patient interviewed and examined All labs, imaging and other results reviewed Pt feels well, no c/o abd pain, nausea or vomiting Pt states she is ready to go home. Discussed plan to start soft diet and need to f/u with Gi after discharge PHYSICAL EXAMINATION: GENERAL: Alert & oriented x 3, in no acute distress SKIN: No lesions HEAD: Normocephalic, atraumatic, no tenderness. EYES: Pupils equal reactive to light, no discharge. EARS/NOSE AND THROAT: Ears normal, nose normal NECK: Supple, no masses CHEST: Inspection within normal limits. CARDIOVASCULAR: Heart: Regular rate and rhythm RESPIRATORY: Lungs clear to auscultation GASTROINTESTINAL AND LIVER: Abdomen: Soft, no tenderness with palpation- resolved, non-distended, no hernias, no masses, no organomegaly, no ascites, no guarding, no rebound tenderness, normoactive bowel sounds. Rectal: Deferred. EXTREMITIES: No cyanosis, clubbing or edema. Result Diagram: 12/24/18 0558 12/24/18 0558 Results 24hrs Laboratory Tests Test 12/24/18 05:58 White Blood Count 7.0 Red Blood Count 3.58 L Hemoglobin 10.9 L Hematocrit 33.4 L Mean Corpuscular Volume 93.3 Mean Corpuscular Hemoglobin 30.4 Mean Corpuscular Hemoglobin Concent 32.6 Red Cell Distribution Width 13.1 Platelet Count 410 Mean Platelet Volume 8.9 Immature Granulocytes % 3.300 H Neutrophils % 61.4 Lymphocytes % 22.5 Monocytes % 9.0 Eosinophils % 2.8 Basophils % 1.0 Nucleated Red Blood Cells % 0.0 Immature Granulocytes # 0.230 H Neutrophils # 4.3 Lymphocytes # 1.6 Monocytes # 0.6 Eosinophils # 0.2 Basophils # 0.1 Nucleated Red Blood Cells # 0.0 Sodium Level 142 Potassium Level 3.9 Chloride Level 109 Carbon Dioxide Level 23 Anion Gap 10 Blood Urea Nitrogen < 2 L Creatinine 0.77 Est Glomerular Filtrat Rate mL/min Glucose Level 90 Calcium Level 8.9 Phosphorus Level 2.9 Magnesium Level 1.7 Exam/Review of Systems Exam Vitals Vital Signs Date Temp Pulse Resp B/P (MAP) Pulse Ox O2 O2 Flow FiO2 Time Delivery Rate 12/24/18 98.4 64 20 149/67 99 07:40 (94) 12/21/18 Room Air 14:30 Intake and Output 12/23/18 12/23/18 12/24/18 1515:00 23:00 07:00 IntakeIntake Total 1120 ml 2120 ml 660 ml BalanceBalance 1120 ml 2120 ml 660 ml Results Results 24hrs Laboratory Tests Test 12/24/18 05:58 White Blood Count 7.0 Red Blood Count 3.58 L Hemoglobin 10.9 L Hematocrit 33.4 L Mean Corpuscular Volume 93.3 Mean Corpuscular Hemoglobin 30.4 Mean Corpuscular Hemoglobin Concent 32.6 Red Cell Distribution Width 13.1 Platelet Count 410 Mean Platelet Volume 8.9 Immature Granulocytes % 3.300 H Neutrophils % 61.4 Lymphocytes % 22.5 Monocytes % 9.0 Eosinophils % 2.8 Basophils % 1.0 Nucleated Red Blood Cells % 0.0 Immature Granulocytes # 0.230 H Neutrophils # 4.3 Lymphocytes # 1.6 Monocytes # 0.6 Eosinophils # 0.2 Basophils # 0.1 Nucleated Red Blood Cells # 0.0 Sodium Level 142 Potassium Level 3.9 Chloride Level 109 Carbon Dioxide Level 23 Anion Gap 10 Blood Urea Nitrogen < 2 L Creatinine 0.77 Est Glomerular Filtrat Rate mL/min Glucose Level 90 Calcium Level 8.9 Phosphorus Level 2.9 Magnesium Level 1.7 Medications Medication Current Medications Dextrose/Sodium Chloride 1,000 ml @ 80 mls/hr [id number] IV Last administered on 12/23/18at 20:36; Admin Dose 80 MLS/HR; Start 12/18/18 at 00:30 IV Flush (NS 3 ml) 3 ml PER PROTOCOL IV ; Start 12/18/18 at 00:30 Ondansetron HCl (Zofran Inj) 4 mg Q6H PRN IV NAUSEA/VOMITING; Start 12/18/18 at 00:30 Morphine Sulfate (morphine) 2 mg Q4H PRN IV .SEVERE PAIN 7-10; Start 12/18/18 at 00:30 Famotidine (Pepcid Iv) 20 mg Q12 IV Last administered on 12/24/18at 09:02; Admin Dose 20 MG; Start 12/18/18 at 09:00 Albuterol/ Ipratropium (Duoneb) 3 ml Q2H RESP THERAPY PRN HHN SHORTNESS OF BREATH; Start 12/18/18 at 00:30 Enoxaparin Sodium (Lovenox) 30 mg DAILY SC Last administered on 12/24/18at 09:08; Admin Dose 30 MG; Start 12/19/18 at 09:00 Pantoprazole (Protonix Tab) 40 mg DAILY@06 PO Last administered on 12/24/18at 05:59; Admin Dose 40 MG; Start 12/24/18 at 06:00 Ciprofloxacin (Cipro) 500 mg BID@06,18 PO ; Start 12/24/18 at 18:00 Metronidazole (Flagyl) 500 mg Q8 PO ; Start 12/24/18 at 14:00 WILBUR WAHL Dec 24, 2018 13:13
[2018-12-24 13:53] VITALS: BP 138/64; PULSE 69; RESP 18
[2018-12-24] MEDS ORDERED: metroNIDAZOLE 500 MG TAB PO SCH (14:00)
[2018-12-24] MEDS ORDERED: POLY17PO6 PO (14:53)
[2018-12-24] MEDS ORDERED: METR500T PO (14:53)
[2018-12-24] MEDS ORDERED: DOCU-144 PO (14:53)
[2018-12-24] MEDS ORDERED: PANT40TA4 PO (14:53)
[2018-12-24] MEDS ORDERED: CIPR500T4 PO (14:53)
[2018-12-24] MEDS ORDERED: morphine LIQ (10 MG/5 ML) CUP PO PRN (15:30)
--- NOTE | 2018-12-24 15:45 | PDOCDIS ---
Discharge Instructions DIAGNOSIS Discharge Diagnosis Sepsis secondary to Colitis . CONDITION [id number] Patient Condition: [id number] Stable HOME CARE INSTRUCTIONS: [id number] Special Diet: Rouxc3w Soft or full liquid high fiber diet ACTIVITY: [id number] Activity Restrictions: [id number] Slowly Increase Activity Rest between Activity FOLLOW UP/APPOINTMENTS Follow-up Plan 1. Call the senior research manager with the information below to setup appointment Name, Degree: Jennifer Frederick MD Specialty: Gastroenterology Comments: Office Address: [address] [place] [address] Office Office 2. Followup with your primary doctor within the next 1-2 weeks. 3. Review your medication list with your nurse before leaving and if you need new prescriptions please let your nurse know. 4. I may have made changes to your home medications or given you new prescriptions, please let your primary doctor know as well. 5. Stay compliant with your medications and report any side effects to your PCP or pharmacist. 6.Return to the ER if you have any concerns and cannot reach your doctors or call your insurance company, they usually have a nurse that can help you. . SAURABH SAMANO Dec 24, 2018 15:45
--- NOTE | 2018-12-24 16:27 | DS ---
DATE OF ADMISSION: 12/18/2018 DATE OF DISCHARGE: 12/24/2018 PRESENTING COMPLAINT: Abdominal pain. ADMISSION DIAGNOSES: 1. Irregular thickening of the cecum and ascending colon concerning for underlying colonic neoplasm with superimposed colitis and contained microperforation. 2. Sepsis secondary to #1. FINAL DIAGNOSES: 1. Acute colitis versus diverticulitis and less likely neoplastic sources with possible adjacent laura endicitis with microperforation: Significantly improved. 2. Sepsis secondary to #1: Resolved. 3. Possible urinary tract infection. CONSULTS ON THE CASE: 1. Omega Dooley MD, for surgery. 2. Jennifer Frederick MD, for GI. 2. Marek Adams MD, for infectious disease. INTERVENTIONS: Please see hospital course. HOSPITAL COURSE: Full details are available in the chart for review. In summary, this is a very ple asant 83-year-old female. She resides at [facility] and she is coming with complaints of se shanel right lower quadrant abdominal pain and was found to be septic with a lot of tenderness and infl ammation in the right lower quadrant. A CT scan was done that did show thickening of the wall of the cecum and some concern for microperforation and colitis as well as a possible adjacent appendicitis. She was admitted and started immediately on empiric broad spectrum antibiotics. General surgery co nsultation was obtained as well as GI. Surgery did have doubts right from the start about there bein g a neoplastic component to her symptoms. A CEA was done that came back normal and it was repeated o nce and that was normal as well. She did very well with antibiotics and eventually she was commenced on a clear liquid diet which was advanced to full liquid and today we are going to be advanced that to soft diet. She has done well and is tolerating the full liquid at this time. If she is able to t olerate a soft diet, the plan is to discharge her home today to complete antibiotic therapy and to fo llow up with GI as outpatient for a colonoscopy that should be done as soon as possible. That way, b iopsies can be obtained if necessary. Surgery also feels that she may eventually need to have an laura endectomy, but the plan is to repeat the CT scan once inflammation has subsided and see what is left. She has been given the information for the GI team and GI will follow up on the above. I have also discussed this with her and she has verbalized understanding. It has also been included in her disc harge instructions. She is also recommended to follow up with her primary care doctor within the nex t 1 to 2 weeks to notify them what is happening in the hospital and to plan for continued monitoring as outpatient. DISCHARGE CONDITION: Stable. ACTIVITY: As tolerated. DIET: Recommended diet is soft diet. DISCHARGE MEDICATIONS: For a complete list of her discharge medications, please review discharge med ication list. FOLLOWUP PLAN: See above. Time spent on discharge coordination has been more than 90 minutes. Dictated By: SAURABH SAMANO MD BA/NTS Conf#: [id number] DID#: [id number] CC: OMEGA IRIZARRY MD; OMEGA DOOLEY MD; ARSALAN BARILLAS MD;*EndCC*
[2018-12-24] MEDS ORDERED: CIPROFLOXACIN 500 MG TAB PO SCH (18:00)
== END 2018-12-24 18:00 | disposition home or self-care (01) | DRG 872 ==
LOC: E/R 17:56 → TEL 12-18 00:11 → 2NE 12-19 16:35
PROVIDERS: ADMIT Internal Medicine; ATTEND Internal Medicine
DX: A41.9 Sepsis, unspecified organism (principal); N39.0 Urinary tract infection, site not specified; K57.20 Diverticulitis of large intestine with perforation and abscess without bleeding; K52.9 Noninfective gastroenteritis and colitis, unspecified; D37.4 Neoplasm of uncertain behavior of colon; Z90.710 Acquired absence of both cervix and uterus; K44.9 Diaphragmatic hernia without obstruction or gangrene; N26.1 Atrophy of kidney (terminal); I70.0 Atherosclerosis of aorta; M51.36 Other intervertebral disc degeneration, lumbar region; Z90.79 Acquired absence of other genital organ(s); Z90.722 Acquired absence of ovaries, bilateral; Z87.891 Personal history of nicotine dependence
CPT/HCPCS: 36415; 71045; 74176; 74177; 80048; 80053; 81001; 82378; 83605; 83690; 83735; 84100; 85025; 87040; 87075; 87081; 87338; 96361; 96374; 96375; C9113; J0744; J1650; J2270; J2405; J2543; J3370; J7040; J7042